=== PATIENT | female | born 1985 | race African-American/Black ===

== ENCOUNTER 2017-04-21 13:04 | Inpatient (IN) | payer MEDICAID ==
[~2017-04-21] VITALS: Ht 162.6 cm; Wt 102.6 kg
[2017-04-21] MEDS ORDERED: METOPROLOL TARTRATE 5 MG/5 ML VIAL. IV ONE ×2 (13:15→13:45)
[2017-04-21 13:35] LABS: BASO # 0.1 x10^3/uL (0.0-0.2); BASO % 1 % (0-3); EOS # 0.5 x10^3/uL (0.0-0.7); EOS % 5 % (0-3); HEMATOCRIT 39.5 % (36.0-47.0); LYMPH # 2.7 x10^3/uL (1.0-4.8); LYMPH % 28 % (24-48); MEAN CORPUSCULAR HEMOGLOBIN 24 pg (25-35); MEAN CORPUSCULAR HGB CONC 33 g/dL (31-37); MEAN CORPUSCULAR VOLUME 72 fL (79-100); MONO # 0.5 x10^3/uL (0.0-1.1); MONO % 5 % (0-9); NEUT # 5.8 x10^3uL (1.8-7.7); NEUT % 61 % (31-73); PLATELET COUNT 371 x10^3/uL (140-400); RED BLOOD COUNT 5.47 x10^6/uL (3.50-5.40); RED CELL DISTRIBUTION WIDTH 16.1 % (11.5-14.5); WHITE BLOOD COUNT 9.6 x10^3/uL (4.0-11.0)
[2017-04-21 13:43] LABS: CALCIUM 9.6 mg/dL (8.5-10.1); CREATININE 0.6 mg/dL (0.6-1.0); GFR 116.6; POTASSIUM 2.6 mmol/L (3.5-5.1)
[2017-04-21] MEDS ORDERED: POTASSIUM CHLORIDE 20 MEQ TABLET.ER. PO ONE ×3 (13:45→19:15)
--- NOTE | 2017-04-21 14:06 | PHYS DOC ---
Past History Past Medical History: No Pertinent History Past Surgical History: Hysterectomy, Oophorectomy, Tubal ligation, Other Alcohol Use: None Drug Use: None Adult General Chief Complaint Chief Complaint: HYPERTENSION HPI HPI Patient is a 31 year old F who presents with hypertension. She was at an employment physical today when she was found to be moderately hypertensive. She also has associated headache. She does have a history of hypertension during however she has no other history of high blood pressure. She does not take medications currently. She has no other associated symptoms. She has no other exacerbating or alleviating factors. Review of Systems Review of Systems Constitutional: Denies fever or chills [] Eyes: Denies change in visual acuity, redness, or eye pain [] HENT: Denies nasal congestion or sore throat [] Respiratory: Denies cough or shortness of breath [] Cardiovascular: No additional information not addressed in HPI [] GI: Denies abdominal pain, nausea, vomiting, bloody stools or diarrhea [] : Denies dysuria or hematuria [] Musculoskeletal: Denies back pain or joint pain [] Integument: Denies rash or skin lesions [] Neurologic: Denies focal weakness or sensory changes [] Endocrine: Denies polyuria or polydipsia [] All other systems were reviewed and found to be within normal limits, except as documented in this note. Family History Family History No pertinent medical history was reported Current Medications Current Medications Current Medications Medications (Trade) Dose Ordered Sig/Iva Start Time Stop Time Status Last Admin Dose Admin Metoprolol Tartrate (Lopressor Vial) 5 mg 1X ONCE 04/21/17 13:45 04/21/17 13:49 DC 04/21/17 13:53 5 MG Potassium Chloride (Klor-Con) 40 meq 1X ONCE 04/21/17 13:45 04/21/17 13:49 DC 04/21/17 13:54 40 MEQ Allergies Allergies Allergies Coded Allergies Type Severity Reaction Last Updated Verified No Known Drug Allergies 04/21/17 No Physical Exam Physical Exam Constitutional: Well developed, well nourished, no acute distress, non-toxic appearance. [] HENT: Normocephalic, atraumatic, Eyes: EOMI, conjunctiva normal, no discharge. [] Neck: Normal range of motion, no tenderness, supple, no stridor. [] Cardiovascular:Heart rate regular rhythm, Lungs & Thorax: Bilateral breath sounds clear to auscultation [] Abdomen: Bowel sounds normal, soft, no tenderness, no masses, no pulsatile masses. [] Skin: Warm, dry, no erythema, no rash. [] Extremities: No tenderness, no cyanosis, no clubbing, ROM intact, no edema. [] Neurologic: Alert and oriented X 3, normal motor function, normal sensory function, no focal deficits noted. [] Psychologic: Affect normal, judgement normal, mood normal. [] Current Patient Data Vital Signs Vital Signs Date Time Temp Pulse Resp B/P (MAP) Pulse Ox O2 Delivery O2 Flow Rate FiO2 04/21/17 13:53 84 197/136 04/21/17 13:41 16 96 Room Air 04/21/17 13:13 98.3 Lab Results Laboratory Tests Test 04/21/17 13:23 White Blood Count 9.6 x10^3/uL (4.0-11.0) Red Blood Count 5.47 x10^6/uL (3.50-5.40) H Hemoglobin 13.0 g/dL (12.0-15.5) Hematocrit 39.5 % (36.0-47.0) Mean Corpuscular Volume 72 fL (79-100) L Mean Corpuscular Hemoglobin 24 pg (25-35) L Mean Corpuscular Hemoglobin Concent 33 g/dL (31-37) Red Cell Distribution Width 16.1 % (11.5-14.5) H Platelet Count 371 x10^3/uL (140-400) Neutrophils (%) (Auto) 61 % (31-73) Lymphocytes (%) (Auto) 28 % (24-48) Monocytes (%) (Auto) 5 % (0-9) Eosinophils (%) (Auto) 5 % (0-3) H Basophils (%) (Auto) 1 % (0-3) Neutrophils # (Auto) 5.8 x10^3uL (1.8-7.7) Lymphocytes # (Auto) 2.7 x10^3/uL (1.0-4.8) Monocytes # (Auto) 0.5 x10^3/uL (0.0-1.1) Eosinophils # (Auto) 0.5 x10^3/uL (0.0-0.7) Basophils # (Auto) 0.1 x10^3/uL (0.0-0.2) Sodium Level 140 mmol/L (136-145) Potassium Level 2.6 mmol/L (3.5-5.1) *L Chloride Level 100 mmol/L (98-107) Carbon Dioxide Level 33 mmol/L (21-32) H Anion Gap 7 (6-14) Blood Urea Nitrogen 10 mg/dL (7-20) Creatinine 0.6 mg/dL (0.6-1.0) Estimated GFR (Cockcroft-Gault) 116.6 Glucose Level 106 mg/dL (70-99) H Calcium Level 9.6 mg/dL (8.5-10.1) EKG EKG NSR with flattened T waves Radiology/Procedures Radiology/Procedures [] Course & Med Decision Making Course & Med Decision Making Pertinent Labs and Imaging studies reviewed. (See chart for details) She was initially given metoprolol 5 IV. Her pressure was rechecked 15 minutes later without improvement. She is given a second dose of metoprolol 5 mg IV. She was also given potassium chloride 40 mEq by mouth and a normal saline bolus Dragon Disclaimer Dragon Disclaimer This electronic medical record was generated, in whole or in part, using a voice recognition dictation system. Departure Departure: Impression: Primary Impression: Hypertensive urgency Additional Impression: Hypokalemia Disposition: ADMITTED INPATIENT Condition: STABLE Problem Qualifiers ONESIMO LARSON MD Apr 21, 2017 14:06
[2017-04-21] MEDS ORDERED: IV NORMAL SALINE 1,000ML 1,000 ML IV ONE (14:15)
[2017-04-21 14:37] VITALS: BP 179/124
[2017-04-21 14:49] VITALS: BP 179/124
--- NOTE | 2017-04-21 14:58 | EKG ---
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
[2017-04-21] MEDS ORDERED: MULT1TAB52 PO (15:05)
[2017-04-21 15:37] VITALS: BP 180/125
[2017-04-21] MEDS: SPIRONOLACTONE 25 MG TABLET PO SCH (15:55)
[2017-04-21] MEDS: LABETALOL HCL 100 MG TABLET PO SCH ×2 (15:56→21:17)
[2017-04-21] MEDS ORDERED: ACETAMINOPHEN 650 MG/20.3 ML SOLUTION. PO PRN (17:45)
[2017-04-21] MEDS: ACETAMINOPHEN 325 MG TABLET PO PRN (17:47)
[2017-04-21 18:08] VITALS: BP 188/125
[2017-04-21] MEDS ORDERED: LABETALOL HCL 200 MG TABLET PO ONE (18:15)
--- NOTE | 2017-04-21 18:19 | HP ---
ADMIT DATE: 04/21/2017 HISTORY OF PRESENT ILLNESS: The patient is a 31-year-old female patient who came to the Emergency Room with a diagnosis of hypertension. 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 She also has been complaining of headache, has been taking Excedrin almost for the last few weeks. She apparently has had toxemia of in the fifth and the baby was born prematurely, and at that time, she was treated with antihypertensive medication including labetalol and Norvasc, and her blood pressure has resolved completely 2 months after delivery, according to her. Apparently, she had the history of syncope on 10/2015. 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 She was also found to be extremely hypokalemic, hypomagnesemic, and eventually, she ended up with a total abdominal hysterectomy and has been receiving iron, potassium and magnesium supplement intravenously at [facility]. PAST SURGICAL HISTORY: Significant for ectopic for which she underwent left salpingo-oophorectomy, tubal ligation, total abdominal hysterectomy and right salpingo-oophorectomy. OBSTETRIC HISTORY: She is 5, para 4. She has 1 ectopic . ALLERGIES: She has no known drug allergies. MEDICATIONS: She is on multivitamin 1 tablet once a day and Excedrin as needed for headache. FAMILY HISTORY: She has 1 younger brother and 1 younger sister and 1 older sister, all seemed to be healthy. Her father is alive at age of 51, has diabetes mellitus. Her mother is alive at age of 54 and is known to have hypertension. SOCIAL HISTORY: She is , has 2 sons and 2 daughters. She does not smoke, drink alcohol or recreational drugs. 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 REVIEW OF SYSTEMS: The patient denied any blurring of vision, cataract, glaucoma or macular degeneration. Denied any earache, tinnitus or sensorineural deafness. Denied any nosebleeds, stuffy nose or postnasal drip. Denied any sore throat, sore tongue, toothache, hoarseness of voice or difficulty swallowing. Denied any nausea, vomiting, diarrhea or constipation. Denied any hematemesis, melena or hematochezia. Denied any dysuria, frequency or hematuria. Denied any chest pain, shortness of breath, orthopnea, paroxysmal nocturnal dyspnea. Denied any cough, phlegm or hemoptysis. Denied any dizziness, lightheadedness, or vertigo, but did complain of headache. PHYSICAL EXAMINATION: GENERAL: On arrival to the Emergency Room, the patient was somewhat pale, but not jaundiced or cyanosis. No lymphadenopathy, no thyromegaly. No jugular venous distension. No lower limb edema. VITAL SIGNS: Her heart rate was 108, blood pressure on arrival 196/132, temperature was 98.3, respiratory rate was 18 and oxygen saturation was 97%. HEAD, EYES, EARS, NOSE AND THROAT: Showed normocephalic, atraumatic. NECK: Supple. HEART: Showed normal first and second heart sounds. No gallop, rub or murmur. CHEST: Clear to auscultation. No crepitation or rhonchi. ABDOMEN: Distended, soft, nontender. No guarding or rigidity. No organomegaly. All hernial orifices intact. Bowel sounds normal. NEUROLOGIC: She is awake, alert, responding appropriately. All cranial nerves intact. She moves extremities without difficulty. She ambulates without assistance or assistive devices. LABORATORY DATA: While in the Emergency Room, she had lab work done, which showed a white cell count of 9600, hemoglobin 13, hematocrit 39, MCV 72 and platelet count of 371,000. Her serum sodium was 140, potassium 2.6, chloride 100, bicarbonate 33, anion gap of 7, BUN 10, creatinine 0.6, estimated GFR was 116 mL per minute. Her glucose was 106, calcium was 9.6, and magnesium was 1.8. ASSESSMENT AND PLAN: We did order a renal Duplex ultrasound looking for renal artery stenosis. Given the extreme hypertension and hypokalemia, obviously hyperaldosteronism is a possibility as well as renal artery stenosis. I did start her on labetalol 100 mg 3 times a day as well as spironolactone and will replenish potassium. Obviously, if there is evidence of renal artery stenosis, we will consult the cardiology team to assist in the management. She might require renal angiography and perhaps angioplasty. She might require also further endocrinological evaluation regarding hyperaldosteronism or Conn syndrome. MARIANNE DE SOUZA MD DR: Jose Angel JOB#: [id number] / [id number]
[2017-04-21 19:03] LABS: CALCIUM 8.6 mg/dL (8.5-10.1); CREATININE 0.6 mg/dL (0.6-1.0); GFR 141.1
[2017-04-21 19:05] LABS: POTASSIUM 2.9 mmol/L (3.5-5.1)
[2017-04-21 19:41] VITALS: BP 178/110
[2017-04-21] MEDS: POTASSIUM CHLORIDE 20 MEQ TABLET.ER. PO SCH (21:18)
[2017-04-21 22:22] VITALS: BP 172/137
[2017-04-22] VITALS (10 sets, daily range): BP systolic 131–189; BP diastolic 80–124
[2017-04-22] MEDS: ACETAMINOPHEN 325 MG TABLET PO PRN ×3 (00:36→17:12)
[2017-04-22 07:20] LABS: ALBUMIN 3.2 g/dL (3.4-5.0); ALBUMIN/GLOBULIN RATIO 0.8 (1.0-1.7); CALCIUM 8.7 mg/dL (8.5-10.1); CREATININE 0.6 mg/dL (0.6-1.0); GFR 141.1; TOTAL BILIRUBIN 0.3 mg/dL (0.2-1.0); TOTAL PROTEIN 7.2 g/dL (6.4-8.2)
--- NOTE | 2017-04-22 08:27 | RAD ---
Ultrasound renal complete 04/21/2017 Clinical indication: Hypertensive urgency. Comparison: CT abdomen and pelvis 06/11/2009 Findings: Right kidney measures 13.9 cm in length without collecting system dilatation or abnormal perinephric fluid collection. The left kidney measures 12.3 cm in length without collecting system dilatation or abnormal perinephric fluid collection. The mildly distended urinary bladder is unremarkable. Impression: Both kidneys present without hydronephrosis.
[2017-04-22] MEDS: LABETALOL HCL 100 MG TABLET PO SCH ×3 (08:39→19:48)
[2017-04-22] MEDS: SPIRONOLACTONE 25 MG TABLET PO SCH (08:39)
[2017-04-22] MEDS: POTASSIUM CHLORIDE 20 MEQ TABLET.ER. PO SCH ×2 (08:40→19:48)
--- NOTE | 2017-04-22 10:43 | PDOC2 ---
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 She was sent to the ED where she was given IV antihypertensive medications without significant change in blood pressure so admitted for evaluation and management. She has complaints of headache and a history of migraines but daily over the last 2 months. She reports her last blood pressure measurement was about 6 months prior and was normal. She reports a 2 pillow orthopnea over about the last 2 months but denies any dyspnea on exertion. She reports some mild chest pressure that is improved with sitting up and worse in supine position. She denies any palpitations, lightheadedness or dizziness. She denies any recent illness, fever, chills, nausea, vomiting or diarrhea. She walks regularly up to a mile without symptoms or chest discomfort, dyspnea or fatigue. Her headache is currently resolved. She does report some increased stress associated with a recent move, starting a new job. Past Medical History PIH, eclampsia, anemia, hypokalemia and hypomagnesemia and syncope in the setting of dysfunctional uterine bleeding which led to a hysterectomy. Past Surgical History unilateral oophorectomy, tubal ligation and hysterectomy Family History hypertension, diabetes mellitus Social History non smoker, no significant ETOH, no illicit drugs, no significant caffeine intake Current Medications Current Medications Metoprolol Tartrate (Lopressor Vial) 5 mg 1X ONCE IV Last administered on 04/21at 13:30; Start 04/21/17 at 13:15; Stop 04/21/17 at 13:38; Status DC Metoprolol Tartrate (Lopressor Vial) 5 mg 1X ONCE IV Last administered on 04/21at 13:53; Start 04/21/17 at 13:45; Stop 04/21/17 at 13:49; Status DC Potassium Chloride (Klor-Con) 40 meq 1X ONCE PO Last administered on at 13:54; Start 04/21/17 at 13:45; Stop 04/21/17 at 13:49; Status DC Sodium Chloride 1,000 ml @ 1,000 mls/hr 1X ONCE IV Last administered on at 14:08; Start 04/21/17 at 14:15; Stop 04/21/17 at 15:14; Status DC Labetalol HCl (Trandate) 100 mg TID PO Last administered on 04/22/17at 08:39; Start 04/21/17 at 15:45 Spironolactone (Aldactone) 50 mg DAILY PO Last administered on 04/22/17at 08:39 ; Start 04/21/17 at 15:45 Potassium Chloride (Klor-Con) 40 meq 1X ONCE PO Last administered on at 15:55; Start 04/21/17 at 15:45; Stop 04/21/17 at 15:50; Status DC Potassium Chloride (Klor-Con) 20 meq TID PO Last administered on 04/22/17at 08: 40; Start 04/21/17 at 21:00 Acetaminophen (Tylenol) 650 mg PRN Q4HRS PRN PO PAIN / TEMP; Start 04/21/17 at 17:45; Stop 04/21/17 at 17:45; Status DC Acetaminophen (Tylenol) 650 mg PRN Q4HRS PRN PO PAIN / TEMP Last administered on 04/22/17at 08:40; Start 04/21/17 at 17:45 Labetalol HCl (Trandate) 200 mg 1X ONCE PO Last administered on 04/21/17at 18: 15; Start 04/21/17 at 18:15; Stop 04/21/17 at 18:16; Status DC Potassium Chloride (Klor-Con) 40 meq 1X ONCE PO Last administered on at 20:05; Start 04/21/17 at 19:15; Stop 04/21/17 at 19:16; Status DC Active Scripts Active Reported Multivitamins (Multivitamin) 1 Each Tablet 1 Tab PO DAILY Allergies: Coded Allergies: No Known Drug Allergies (Unverified , 04/21/17) Review of System as per HPI with addition of recent 20 lb weight gain and snoring General: Alert, Oriented X3, Cooperative, No acute distress HEENT: Atraumatic, EOMI, Mucous membr. moist/pink, Other (no carotid bruits) Lungs: Clear to auscultation Heart: Regular rate, Normal S1, Normal S2 Abdomen: Normal bowel sounds, Soft, No tenderness Extremities: No clubbing, No cyanosis, Normal pulses, Other (trace pedal edema) Neuro: Normal speech, Strength at 5/5 X4 ext Psych/Mental Status: Mental status NL, Mood NL VITALS Vital Signs Date Time Temp Pulse Resp B/P (MAP) Pulse Ox O2 Delivery O2 Flow Rate FiO2 04/22/17 08:39 79 163/94 04/22/17 05:34 98.1 18 97 Room Air Labs Laboratory Tests Test 04/21/17 13:23 04/21/17 18:30 04/22/17 06:32 White Blood Count 9.6 x10^3/uL (4.0-11.0) Red Blood Count 5.47 x10^6/uL (3.50-5.40) Hemoglobin 13.0 g/dL (12.0-15.5) Hematocrit 39.5 % (36.0-47.0) Mean Corpuscular Volume 72 fL (79-100) Mean Corpuscular Hemoglobin 24 pg (25-35) Mean Corpuscular Hemoglobin Concent 33 g/dL (31-37) Red Cell Distribution Width 16.1 % (11.5-14.5) Platelet Count 371 x10^3/uL (140-400) Neutrophils (%) (Auto) 61 % (31-73) Lymphocytes (%) (Auto) 28 % (24-48) Monocytes (%) (Auto) 5 % (0-9) Eosinophils (%) (Auto) 5 % (0-3) Basophils (%) (Auto) 1 % (0-3) Neutrophils # (Auto) 5.8 x10^3uL (1.8-7.7) Lymphocytes # (Auto) 2.7 x10^3/uL (1.0-4.8) Monocytes # (Auto) 0.5 x10^3/uL (0.0-1.1) Eosinophils # (Auto) 0.5 x10^3/uL (0.0-0.7) Basophils # (Auto) 0.1 x10^3/uL (0.0-0.2) Sodium Level 140 mmol/L (136-145) 140 mmol/L (136-145) 140 mmol/L (136-145) Potassium Level 2.6 mmol/L (3.5-5.1) 2.9 mmol/L (3.5-5.1) 3.0 mmol/L (3.5-5.1) Chloride Level 100 mmol/L (98-107) 103 mmol/L (98-107) 104 mmol/L (98-107) Carbon Dioxide Level 33 mmol/L (21-32) 28 mmol/L (21-32) 27 mmol/L (21-32) Anion Gap 7 (6-14) 9 (6-14) 9 (6-14) Blood Urea Nitrogen 10 mg/dL (7-20) 9 mg/dL (7-20) 7 mg/dL (7-20) Creatinine 0.6 mg/dL (0.6-1.0) 0.6 mg/dL (0.6-1.0) 0.6 mg/dL (0.6-1.0) Estimated GFR (Cockcroft-Gault) 116.6 141.1 141.1 Glucose Level 106 mg/dL (70-99) 148 mg/dL (70-99) 110 mg/dL (70-99) Calcium Level 9.6 mg/dL (8.5-10.1) 8.6 mg/dL (8.5-10.1) 8.7 mg/dL (8.5-10.1) Magnesium Level 1.8 mg/dL (1.8-2.4) BUN/Creatinine Ratio 12 (6-20) Total Bilirubin 0.3 mg/dL (0.2-1.0) Aspartate Amino Transf (AST/SGOT) 16 U/L (15-37) Alanine Aminotransferase (ALT/SGPT) 31 U/L (14-59) Alkaline Phosphatase 67 U/L (46-116) Total Protein 7.2 g/dL (6.4-8.2) Albumin 3.2 g/dL (3.4-5.0) Albumin/Globulin Ratio 0.8 (1.0-1.7) Images EKG, sinus rhythm, left ivory axis, non specific st/tabn. no acute ischemic changes Renal US - Impression: Both kidneys present without hydronephrosis. Assessment/Plan 1. accelerated hypertension - continue labetalol, add norvasc and prn hydralazine. Check renal arterial duplex, echo, TSH, ACTH and aldosterone. Consider 24 hour urine for VMA, metanephrines. 2. chest pain - no acute EKG changes, check troponin. 3. orthopnea - she does not appear overtly volume overloaded. await echo for LV function. Check CXR. 4. hypokalemia - replace, labs as above 5. chronic migraines - ? tension type, currently pain free. 6. obesity Problems: JACI ANTONIO MD 04/22/17 1419: CONSULT Allergies: Coded Allergies: No Known Drug Allergies (Unverified , 04/21/17) Assessment/Plan Patient seen and examined. Agree with ASSOCIATE EMBALMER/FUNERAL DIRECTOR's assessment and plan. Titrate oral antihypertensives for better blood pressure control. Check 2-D echo to assess LV systolic function. We will rule out secondary causes with renal arterial duplex scan and serum aldosterone levels Chest pain atypical and could be secondary to uncontrolled hypertension Myocardial infarction ruled out. Check for wall motion abnormalities on 2-D echo Thank you for your consultation Problems: HAYLEY STORM APRN Apr 22, 2017 10:43 JACI ANTONIO MD Apr 22, 2017 14:19
[2017-04-22] MEDS: amLODIPine BESYLATE 5 MG TABLET PO SCH (11:03)
[2017-04-22] MEDS: hydrALAZINE 20 MG/ML VIAL. IV PRN (11:05)
--- NOTE | 2017-04-22 11:56 | EKG ---
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
--- NOTE | 2017-04-22 12:30 | RAD ---
PA and lateral chest radiograph. History: Chest pain, hypertension. Comparison: None. Findings: Cardiomediastinal silhouette is within normal limits for size. Bilateral lung conti appear clear without evidence of infiltrate, effusion, or pneumothorax. Impression: 1. No acute cardiopulmonary process. Electronically signed by: Aries Walker MD (04/22/2017 12:27 PM) [place] [id number]
[2017-04-22] MEDS ORDERED: POTASSIUM CHLORIDE 20 MEQ TABLET.ER. PO ONE ×3 (15:15)
[2017-04-22] MEDS: HYDROcodone/APAP 5/325MG 1 TAB TABLET PO PRN (18:17)
[2017-04-22] MEDS: ONDANSETRON PF 4 MG/2 ML VIAL. IV PRN (19:47)
[2017-04-22] MEDS: ASA/APAP/CAFFEINE 250/250/65MG TABLET. PO PRN (19:48)
[2017-04-23 06:30] VITALS: BP 134/86
[2017-04-23 06:52] LABS: ALBUMIN 3.2 g/dL (3.4-5.0); ALBUMIN/GLOBULIN RATIO 0.8 (1.0-1.7); CALCIUM 8.9 mg/dL (8.5-10.1); CREATININE 0.6 mg/dL (0.6-1.0); GFR 141.1; POTASSIUM 3.6 mmol/L (3.5-5.1); TOTAL BILIRUBIN 0.3 mg/dL (0.2-1.0); TOTAL PROTEIN 7.3 g/dL (6.4-8.2)
[2017-04-23] MEDS: SPIRONOLACTONE 25 MG TABLET PO SCH (08:28)
[2017-04-23] MEDS: LABETALOL HCL 100 MG TABLET PO SCH ×3 (08:29→20:01)
[2017-04-23] MEDS: POTASSIUM CHLORIDE 20 MEQ TABLET.ER. PO SCH ×3 (08:29→20:00)
[2017-04-23] MEDS: amLODIPine BESYLATE 5 MG TABLET PO SCH (08:29)
--- NOTE | 2017-04-23 09:11 | PN ---
DATE: 04/22/2017 SUBJECTIVE: The patient is resting slightly propped up in bed, no apparent distress. Did complain of chest tightness and orthopnea. When she lies flat for the ultrasound, she also complained of chest pain, had an EKG which was unremarkable. Her blood pressure is trending down, although not yet optimally controlled. PHYSICAL EXAMINATION: GENERAL: When I saw her this afternoon, she looked pale, but no jaundice, cyanosis, or thyromegaly. No jugular venous distension. No limb edema. VITAL SIGNS: Her heart rate was 87, blood pressure 148/80, temperature was 97.8, respiratory rate 20, and oxygen saturation was 98% on room air. HEAD, EARS, NOSE, AND THROAT: Normocephalic, atraumatic. NECK: Supple. HEART: Showed normal first and second sounds. No gallop, rub, or murmur. CHEST: Clear to auscultation. No crepitation or rhonchi. ABDOMEN: Distended, soft, and nontender. No guarding or rigidity. No organomegaly. Hernial orifice intact. Bowel sounds normal. NEUROLOGIC: She is awake, alert, responding appropriately. All her cranial nerves intact. She moves extremities without difficulty. She ambulates without assistance or assistive devices. Her intake over the last 24 hours was 1040, no output was recorded. LABORATORY DATA: As of this morning showed a serum sodium 140, potassium 3, chloride 104, bicarbonate 27, anion gap of 9, BUN 7, creatinine 0.6, estimated GFR was 141 mL per minute. Her glucose was 110, calcium was 8.7. Total bilirubin, AST, ALT, alkaline phosphatase were normal. Total protein 7.2, albumin 3.2. Her triglycerides were 92, total cholesterol 167, LDL was 111, VLDL was 18, and HDL cholesterol was at 38, the ratio was 4, and TSH was 1.086. She apparently did have a renal ultrasound, which showed that the right kidney measures 13.9 cm in length without collecting system dilatation or abnormal perinephric fluid collection. The left kidney measures 12.3 cm in length without collecting system dilatation or abnormal perinephric fluid collection. The mildly distended urinary bladder is unremarkable. She has had also a chest x-ray that showed the cardiopulmonary silhouette is within normal limits for size. Bilateral lung conti appear clear without evidence of infiltrate, effusion, or pneumothorax. She has had renal artery Doppler as well as an echocardiogram, the result of which is still pending at the time of this dictation. ASSESSMENT: Accelerated hypertension with marked hypokalemia with potassium only of 2.6, raising the possibility of secondary hypertension, likely renal artery stenosis and/or hyperaldosteronism. PLAN: To increase the oral antihypertensive medication. She was seen in consultation by the Cardiology team and ordered ACTH and aldosterone tomorrow. Meanwhile, we will continue with the amlodipine as well as I will increase her potassium as well as spironolactone and decide on further management accordingly. MARIANNE DE SOUZA MD DR: MARY/lurdes JOB#: [id number] / [id number]
--- NOTE | 2017-04-23 09:53 | CARD ---
MR#: [id number] Date of Study: 04/22/2017 Ordering Physician: HAYLEY STORM, Referring Physician: MARIANNE DE SOUZA Tech: BRIANA Gallegos APPROVED REPORT EXAM: Two-dimensional and M-mode echocardiogram with Doppler and color Doppler. Other Information Quality : GoodHR: 93bpm INDICATION Dyspnea Congestive Heart Failure 2D DIMENSIONS Left Atrium(2D)3.5 (1.6-4.0cm)IVSd1.5 (0.7-1.1cm) Aortic Root(2D)3.0 (2.0-3.7cm)LVDd4.2 (3.9-5.9cm) LVOT Diameter2.2 (1.8-2.4cm)PWd1.6 (0.7-1.1cm) LVDs3.0 (2.5-4.0cm)FS (%) 28.0 % SV42.1 mlLVEF(%)54.6 (>50%) Aortic Valve AoV Peak Mars.196.5cm/sAoV VTI33.3cm AO Peak GR.15.5mmHgLVOT Peak Mars.118.2cm/s AO Mean GR.8mmHgAVA (VMAX)2.26cm2 Mitral Valve MV E Eqlucsnc42.6cm/sMV DECEL SFEP591kh MV A Fzweytfh030.1cm/sE/A Ratio0.8 Pulmonary Valve PV Peak Fymdniit309.9cm/sPV Peak Grad.8mmHg Pulmonary Vein S1 Izytnrxk29.7cm/sD2 Oueevkwd55.3cm/s LEFT VENTRICLE The left ventricle is normal size. There is borderline concentric left ventricular hypertrophy. The l eft ventricular systolic function is normal. The ejection fraction is 55-60%. There is normal LV segm ental wall motion. Transmitral Doppler flow pattern is Grade I-abnormal relaxation pattern. RIGHT VENTRICLE The right ventricle is normal size. The right ventricular systolic function is normal. ATRIA The left atrium size is normal. The right atrium size is normal. The interatrial septum is intact wit h no evidence for an atrial septal defect or patent foramen ovale as noted on 2-D or Doppler imaging. AORTIC VALVE The aortic valve is thickened but opens well. Doppler and Color Flow revealed no significant aortic r egurgitation. There is no significant aortic valvular stenosis. There is no aortic valvular vegetatio n. MITRAL VALVE The mitral valve is thickened but opens well. There is no evidence of mitral valve prolapse. There is no mitral valve stenosis. Doppler and Color Flow revealed no mitral valve regurgitation noted. TRICUSPID VALVE The tricuspid valve is not well visualized. Doppler and Color Flow revealed no tricuspid valve regurg itation noted. There is no tricuspid valve prolapse or vegetation. There is no tricuspid valve stenos is. PULMONIC VALVE The pulmonic valve is not well visualized. Doppler and Color Flow revealed trace pulmonic valvular re gurgitation. There is no pulmonic valvular stenosis. GREAT VESSELS The aortic root is normal in size. The IVC is normal in size and collapses >50% with inspiration. PERICARDIAL EFFUSION There is no pleural effusion. There is no evidence of significant pericardial effusion. Critical Notification Critical Value: No <Conclusion> The left ventricle is normal size. The left ventricular systolic function is normal. The ejection fraction is 55-60%. There is borderline concentric left ventricular hypertrophy. There is no significant aortic valvular stenosis. Doppler and Color Flow revealed no significant aortic regurgitation. Doppler and Color Flow revealed no mitral valve regurgitation noted. Doppler and Color Flow revealed no tricuspid valve regurgitation noted. There is no evidence of significant pericardial effusion. Signed by : Audie Kyle MD Electronically Approved : 04/23/2017 09:53:28
--- NOTE | 2017-04-23 11:36 | PDOC ---
SUBJECTIVE: Patient seen and examined She feels well today OBJECTIVE: Problems: Problems Medical Problems: (1) Hypertensive urgency Status: Acute (2) Hypokalemia Status: Acute Vital Signs: Vital Signs Date Time Temp Pulse Resp B/P (MAP) Pulse Ox O2 Delivery O2 Flow Rate FiO2 04/23/17 08:29 61 134/86 04/23/17 08:15 Room Air 04/23/17 06:30 97.8 20 97 04/22/17 23:53 2.0 I & O Intake and Output 04/23/17 07:00 Intake Total 1860 ml Balance 1860 ml Intake Oral 1860 ml # Voids 5 Labs: Laboratory Tests Test 04/21/17 13:23 04/21/17 18:30 04/22/17 06:32 04/22/17 12:10 White Blood Count 9.6 x10^3/uL (4.0-11.0) Red Blood Count 5.47 x10^6/uL (3.50-5.40) Hemoglobin 13.0 g/dL (12.0-15.5) Hematocrit 39.5 % (36.0-47.0) Mean Corpuscular Volume 72 fL (79-100) Mean Corpuscular Hemoglobin 24 pg (25-35) Mean Corpuscular Hemoglobin Concent 33 g/dL (31-37) Red Cell Distribution Width 16.1 % (11.5-14.5) Platelet Count 371 x10^3/uL (140-400) Neutrophils (%) (Auto) 61 % (31-73) Lymphocytes (%) (Auto) 28 % (24-48) Monocytes (%) (Auto) 5 % (0-9) Eosinophils (%) (Auto) 5 % (0-3) Basophils (%) (Auto) 1 % (0-3) Neutrophils # (Auto) 5.8 x10^3uL (1.8-7.7) Lymphocytes # (Auto) 2.7 x10^3/uL (1.0-4.8) Monocytes # (Auto) 0.5 x10^3/uL (0.0-1.1) Eosinophils # (Auto) 0.5 x10^3/uL (0.0-0.7) Basophils # (Auto) 0.1 x10^3/uL (0.0-0.2) Sodium Level 140 mmol/L (136-145) 140 mmol/L (136-145) 140 mmol/L (136-145) Potassium Level 2.6 mmol/L (3.5-5.1) 2.9 mmol/L (3.5-5.1) 3.0 mmol/L (3.5-5.1) Chloride Level 100 mmol/L (98-107) 103 mmol/L (98-107) 104 mmol/L (98-107) Carbon Dioxide Level 33 mmol/L (21-32) 28 mmol/L (21-32) 27 mmol/L (21-32) Anion Gap 7 (6-14) 9 (6-14) 9 (6-14) Blood Urea Nitrogen 10 mg/dL (7-20) 9 mg/dL (7-20) 7 mg/dL (7-20) Creatinine 0.6 mg/dL (0.6-1.0) 0.6 mg/dL (0.6-1.0) 0.6 mg/dL (0.6-1.0) Estimated GFR (Cockcroft-Gault) 116.6 141.1 141.1 Glucose Level 106 mg/dL (70-99) 148 mg/dL (70-99) 110 mg/dL (70-99) Calcium Level 9.6 mg/dL (8.5-10.1) 8.6 mg/dL (8.5-10.1) 8.7 mg/dL (8.5-10.1) Magnesium Level 1.8 mg/dL (1.8-2.4) BUN/Creatinine Ratio 12 (6-20) Total Bilirubin 0.3 mg/dL (0.2-1.0) Aspartate Amino Transf (AST/SGOT) 16 U/L (15-37) Alanine Aminotransferase (ALT/SGPT) 31 U/L (14-59) Alkaline Phosphatase 67 U/L (46-116) Troponin I Quantitative < 0.017 ng/mL (0-0.055) Total Protein 7.2 g/dL (6.4-8.2) Albumin 3.2 g/dL (3.4-5.0) Albumin/Globulin Ratio 0.8 (1.0-1.7) Triglycerides Level 92 mg/dL (0-150) Cholesterol Level 167 mg/dL (0-200) LDL Cholesterol, Calculated 111 mg/dL (0-100) VLDL Cholesterol, Calculated 18 mg/dL (0-40) Non-HDL Cholesterol Calculated 129 mg/dL (0-129) HDL Cholesterol 38 mg/dL (40-60) Cholesterol/HDL Ratio 4.0 Thyroid Stimulating Hormone (TSH) 1.086 uIU/mL (0.358-3.740) D-Dimer (Brea) 0.43 mg/L (0.00-0.50) Test 04/23/17 06:10 Sodium Level 139 mmol/L (136-145) Potassium Level 3.6 mmol/L (3.5-5.1) Chloride Level 105 mmol/L (98-107) Carbon Dioxide Level 27 mmol/L (21-32) Anion Gap 7 (6-14) Blood Urea Nitrogen 8 mg/dL (7-20) Creatinine 0.6 mg/dL (0.6-1.0) Estimated GFR (Cockcroft-Gault) 141.1 BUN/Creatinine Ratio 13 (6-20) Glucose Level 97 mg/dL (70-99) Calcium Level 8.9 mg/dL (8.5-10.1) Total Bilirubin 0.3 mg/dL (0.2-1.0) Aspartate Amino Transf (AST/SGOT) 18 U/L (15-37) Alanine Aminotransferase (ALT/SGPT) 30 U/L (14-59) Alkaline Phosphatase 67 U/L (46-116) Total Protein 7.3 g/dL (6.4-8.2) Albumin 3.2 g/dL (3.4-5.0) Albumin/Globulin Ratio 0.8 (1.0-1.7) Physical Exam: Chest: clear CV: RRR Abdomen: soft ASSESSMENT: 1. accelerated hypertension - Improved BP on present medications. ECHO with normal LV function and borderline LVH. 2. chest pain - resolved, no acute EKG changes, troponin not significantly elevated. 3. orthopnea - ECHO as above. 4. hypokalemia - replaced 5. chronic migraines - resolved with better BP control. CORRINA HUBER MD Apr 23, 2017 11:35
[2017-04-23 11:38] VITALS: BP 163/107
[2017-04-23] MEDS: hydrALAZINE 20 MG/ML VIAL. IV PRN ×2 (11:43→22:30)
[2017-04-23] MEDS: ONDANSETRON PF 4 MG/2 ML VIAL. IV PRN (12:53)
[2017-04-23] MEDS: ASA/APAP/CAFFEINE 250/250/65MG TABLET. PO PRN ×2 (13:07→20:00)
[2017-04-23] MEDS: HYDROcodone/APAP 5/325MG 1 TAB TABLET PO PRN ×2 (15:26→20:01)
[2017-04-23] MEDS ORDERED: amLODIPine BESYLATE 5 MG TABLET PO ONE (15:45)
[2017-04-23 15:54] VITALS: BP 161/103
[2017-04-23] MEDS: POLYETHYLENE GLYCOL 3350 17 GM PACKET. PO PRN (17:09)
[2017-04-23 19:00] VITALS: BP 173/79
[2017-04-23] MEDS: DOCUSATE SODIUM 100 MG CAPSULE PO SCH (19:59)
[2017-04-23 22:30] VITALS: BP 166/104
[2017-04-23 23:00] VITALS: BP 145/85
[2017-04-23] MEDS: ACETAMINOPHEN 325 MG TABLET PO PRN (23:20)
[2017-04-24 06:06] VITALS: BP 128/89
[2017-04-24 07:51] LABS: CREATININE 0.5 mg/dL (0.6-1.0); GFR 174.1; MAGNESIUM 1.8 mg/dL (1.8-2.4); POTASSIUM 3.7 mmol/L (3.5-5.1)
--- NOTE | 2017-04-24 08:03 | PN ---
DATE: 04/23/2017 SUBJECTIVE: The patient is resting slightly propped up in bed, in no apparent distress. She is awake, alert, has a good day this morning but unfortunately her blood pressure went up again this afternoon. She complained of headache. She also complained of constipation. OBJECTIVE: GENERAL: When I saw her this afternoon, she looked well and was clearly in no apparent respiratory distress. On examining her, she looked pale, but no jaundice, cyanosis, or thyromegaly. No jugular venous distension. No limb edema. VITAL SIGNS: Her heart rate was 84, blood pressure was 161/101. Her temperature was 98.4, respiratory rate 20, and oxygen saturation was 97%. HEAD, EARS, NOSE AND THROAT: Normocephalic, atraumatic. NECK: Supple. HEART: Showed normal first and second heart sounds with no gallop, rub or murmur. CHEST: Clear to auscultation. No crepitation or rhonchi. ABDOMEN: Distended, soft, nontender. No guarding or rigidity. No organomegaly. Hernial orifice intact. Bowel sounds normal. NEUROLOGIC: She was awake, alert, responding appropriately. Cranial nerves intact. She moves extremities without difficulty. She ambulates without assistance or assistive devices. Her intake over the last 24 hours was 1160. No output was recorded. LABORATORY DATA: Her lab work this morning showed that her serum sodium was 139, potassium 3.6, chloride 105, bicarbonate 27, anion gap of 7, BUN 8, creatinine was 0.6, estimated GFR was 141 mL per minute. Her glucose was 97, calcium was 8.9. Total bilirubin, AST, ALT, alkaline phosphatase were normal. Total protein was 7.3, albumin 3.2. ASSESSMENT: Accelerated hypertension. The blood pressure is much improved, but not optimally controlled yet. Apparently, she has had an echocardiogram done, which showed that her left ventricular size is normal with normal left ventricular systolic function and an ejection fraction of 55-60%. She has borderline concentric left ventricular hypertrophy and no significant valvular regurgitation or stenosis. PLAN: My plan is to increase her amlodipine to 10 mg and evaluate her, repeat her labs tomorrow, and if she remains stable, can discharge her to follow up with her primary care. MARIANNE DE SOUZA MD DR: MARY/lurdes JOB#: [id number] / [id number]
[2017-04-24] MEDS: SPIRONOLACTONE 25 MG TABLET PO SCH (08:58)
[2017-04-24] MEDS: DOCUSATE SODIUM 100 MG CAPSULE PO SCH ×2 (08:58→19:29)
[2017-04-24] MEDS: POTASSIUM CHLORIDE 20 MEQ TABLET.ER. PO SCH ×3 (08:58→19:29)
[2017-04-24] MEDS: POLYETHYLENE GLYCOL 3350 17 GM PACKET. PO PRN (08:58)
[2017-04-24] MEDS: LABETALOL HCL 100 MG TABLET PO SCH ×3 (08:59→19:29)
[2017-04-24] MEDS ORDERED: amLODIPine BESYLATE 10 MG TABLET PO SCH (09:00)
[2017-04-24 11:27] VITALS: BP 152/83
[2017-04-24 15:27] VITALS: BP 159/108
[2017-04-24] MEDS: ASA/APAP/CAFFEINE 250/250/65MG TABLET. PO PRN (19:28)
[2017-04-24 19:30] VITALS: BP 137/60
[2017-04-24 23:05] VITALS: BP 135/85
--- NOTE | 2017-04-25 00:41 | PN ---
DATE: 04/24/2017 SUBJECTIVE: The patient is a 31-year-old female patient who was admitted with accelerated hypertension that is somewhat better controlled, although not optimally so yet. She is on labetalol, amlodipine, spironolactone and potassium supplement and her blood pressure continued to be in the 150/80-100. She denied any headache today. OBJECTIVE: GENERAL: When I examined her, she looked well and was clearly in no apparent respiratory distress, pale, but no jaundice, cyanosis or thyromegaly. No jugular venous distention. No edema. VITAL SIGNS: Her heart rate was 93, blood pressure 152/83, temperature was 97.9, respiratory rate 20, and oxygen saturation was 96%. The rest of clinical examination is unremarkable, has not really changed. LABORATORY DATA: As of this morning showed that her serum sodium 138, potassium 3.7, chloride 103, bicarbonate 27, anion gap of 8, BUN 10, creatinine 0.5, estimated GFR was 174 mL per minute. Her glucose was 95, calcium was 9, and magnesium was 1.8. Her ACTH baseline was 59. Her TSH was 1.089. ASSESSMENT: Accelerated hypertension. Her blood pressure is much better improved, but not yet controlled. The patient has an echocardiogram, which showed that her left ventricular size is normal with normal left ventricular systolic function, ejection fraction of 55%-60%. She has mild borderline concentric left ventricular hypertrophy, but no significant valvular regurgitation or stenosis. PLAN: My plan is to discontinue amlodipine. Start her on Procardia 30 mg with the aim to increase it up to 120 mg if deemed necessary. MARIANNE DE SOUZA MD DR: MARY/lurdes JOB#: [id number] / [id number]
[2017-04-25 05:36] VITALS: BP 121/75
[2017-04-25 07:02] LABS: CALCIUM 8.9 mg/dL (8.5-10.1); CREATININE 0.4 mg/dL (0.6-1.0); GFR 225.3; POTASSIUM 3.4 mmol/L (3.5-5.1)
[2017-04-25 07:11] LABS: HEMATOCRIT 36.8 % (36.0-47.0); HEMOGLOBIN 11.9 g/dL (12.0-15.5); RED CELL DISTRIBUTION WIDTH 16.6 % (11.5-14.5); WHITE BLOOD COUNT 9.4 x10^3/uL (4.0-11.0)
[2017-04-25] MEDS: DOCUSATE SODIUM 100 MG CAPSULE PO SCH (08:40)
[2017-04-25] MEDS: LABETALOL HCL 100 MG TABLET PO SCH ×2 (08:40→14:05)
[2017-04-25] MEDS: POTASSIUM CHLORIDE 20 MEQ TABLET.ER. PO SCH ×2 (08:40→14:06)
[2017-04-25] MEDS: POLYETHYLENE GLYCOL 3350 17 GM PACKET. PO PRN (08:41)
--- NOTE | 2017-04-25 08:53 | PDOC ---
HAYLEY STORM OFFICE ADMIN 04/25/17 0853: PROGRESS NOTES Diagnosis Problem Problems Medical Problems: (1) Hypertensive urgency Status: Acute (2) Hypokalemia Status: Acute Assessment Problems Medical Problems: (1) Hypertensive urgency Status: Acute (2) Hypokalemia Status: Acute 1. accelerated hypertension - improved with change to nifedipine. normal LV function, borderline LVH by echo. Renal duplex pending. Problems: Subjective feeling better, no headache, no chest pain or palpitations. would like to go home. Objective Vital Signs Date Time Temp Pulse Resp B/P (MAP) Pulse Ox O2 Delivery O2 Flow Rate FiO2 04/25/17 08:41 90 121/75 04/25/17 08:00 Room Air 04/25/17 05:36 97.9 20 98 04/22/17 23:53 2.0 Intake and Output 04/25/17 07:00 Intake Total 540 ml Balance 540 ml Intake Oral 540 ml # Voids 2 Abdomen: Normal bowel sounds, Soft, No tenderness Heart: Regular rate, Normal S1, Normal S2 Extremities: No cyanosis, No edema, Normal pulses General: Alert, Oriented X3, Cooperative Lungs: Clear to auscultation, Normal air movement Neuro: Normal speech, Strength at 5/5 X4 ext Psych/Mental Status: Mental status NL, Mood NL Review of Relevant I have reviewed the following items tess (where applicable) has been applied. Labs Laboratory Tests Test 04/24/17 07:08 04/25/17 06:15 Sodium Level 138 mmol/L (136-145) 121 mmol/L (136-145) Potassium Level 3.7 mmol/L (3.5-5.1) 3.4 mmol/L (3.5-5.1) Chloride Level 103 mmol/L (98-107) 94 mmol/L (98-107) Carbon Dioxide Level 27 mmol/L (21-32) 24 mmol/L (21-32) Anion Gap 8 (6-14) 3 (6-14) Blood Urea Nitrogen 10 mg/dL (7-20) 8 mg/dL (7-20) Creatinine 0.5 mg/dL (0.6-1.0) 0.4 mg/dL (0.6-1.0) Estimated GFR (Cockcroft-Gault) 174.1 225.3 Glucose Level 95 mg/dL (70-99) 98 mg/dL (70-99) Calcium Level 9.0 mg/dL (8.5-10.1) 8.9 mg/dL (8.5-10.1) Magnesium Level 1.8 mg/dL (1.8-2.4) White Blood Count 9.4 x10^3/uL (4.0-11.0) Red Blood Count 5.00 x10^6/uL (3.50-5.40) Hemoglobin 11.9 g/dL (12.0-15.5) Hematocrit 36.8 % (36.0-47.0) Mean Corpuscular Volume 74 fL (79-100) Mean Corpuscular Hemoglobin 24 pg (25-35) Mean Corpuscular Hemoglobin Concent 32 g/dL (31-37) Red Cell Distribution Width 16.6 % (11.5-14.5) Platelet Count 329 x10^3/uL (140-400) Medications Current Medications Metoprolol Tartrate (Lopressor Vial) 5 mg 1X ONCE IV Last administered on 04/21at 13:30; Start 04/21/17 at 13:15; Stop 04/21/17 at 13:38; Status DC Metoprolol Tartrate (Lopressor Vial) 5 mg 1X ONCE IV Last administered on 04/21at 13:53; Start 04/21/17 at 13:45; Stop 04/21/17 at 13:49; Status DC Potassium Chloride (Klor-Con) 40 meq 1X ONCE PO Last administered on at 13:54; Start 04/21/17 at 13:45; Stop 04/21/17 at 13:49; Status DC Sodium Chloride 1,000 ml @ 1,000 mls/hr 1X ONCE IV Last administered on at 14:08; Start 04/21/17 at 14:15; Stop 04/21/17 at 15:14; Status DC Labetalol HCl (Trandate) 100 mg TID PO Last administered on 04/25/17at 08:40; Start 04/21/17 at 15:45 Spironolactone (Aldactone) 50 mg DAILY PO Last administered on 04/24/17at 08:58 ; Start 04/21/17 at 15:45; Stop 04/25/17 at 08:09; Status DC Potassium Chloride (Klor-Con) 40 meq 1X ONCE PO Last administered on at 15:55; Start 04/21/17 at 15:45; Stop 04/21/17 at 15:50; Status DC Potassium Chloride (Klor-Con) 20 meq TID PO Last administered on 04/22/17at 08: 40; Start 04/21/17 at 21:00; Stop 04/22/17 at 14:36; Status DC Acetaminophen (Tylenol) 650 mg PRN Q4HRS PRN PO PAIN / TEMP; Start 04/21/17 at 17:45; Stop 04/21/17 at 17:45; Status DC Acetaminophen (Tylenol) 650 mg PRN Q4HRS PRN PO PAIN / TEMP Last administered on 04/23/17at 23:20; Start 04/21/17 at 17:45 Labetalol HCl (Trandate) 200 mg 1X ONCE PO Last administered on 04/21/17at 18: 15; Start 04/21/17 at 18:15; Stop 04/21/17 at 18:16; Status DC Potassium Chloride (Klor-Con) 40 meq 1X ONCE PO Last administered on at 20:05; Start 04/21/17 at 19:15; Stop 04/21/17 at 19:16; Status DC Hydralazine HCl (Apresoline) 10 mg PRN Q4HRS PRN IV ELEVATED BP, SEE COMMENTS Last administered on 04/23/17at 22:30; Start 04/22/17 at 10:45 Amlodipine Besylate (Norvasc) 5 mg DAILY PO Last administered on 04/23/17at 08: 29; Start 04/22/17 at 11:00; Stop 04/23/17 at 15:43; Status DC Potassium Chloride (Klor-Con) 40 meq TID PO Last administered on 04/25/17at 08: 40; Start 04/22/17 at 21:00 Potassium Chloride (Klor-Con) 40 meq 1X ONCE PO ; Start 04/22/17 at 15:15; Stop 04/22/17 at 15:15; Status DC Potassium Chloride (Klor-Con) 20 meq 1X ONCE PO ; Start 04/22/17 at 15:15; Stop 04/22/17 at 15:15; Status DC Potassium Chloride (Klor-Con) 40 meq 1X ONCE PO Last administered on at 15:12; Start 04/22/17 at 15:15; Stop 04/22/17 at 15:16; Status DC Acetaminophen/ Hydrocodone Bitart (Lortab 5/325) 1 tab PRN Q4HRS PRN PO PAIN Last administered on 04/23/17at 20:01; Start 04/22/17 at 18:00 Ondansetron HCl (Zofran) 4 mg PRN Q6HRS PRN IV NAUSEA/VOMITING Last administered on 04/23/17at 12:53; Start 04/22/17 at 19:45 Acetaminophen/ Aspirin/Caffeine (Excedrin Migraine) 1 tab PRN Q6HRS PRN PO MIGRAINE HEADACHE Last administered on 04/24/17at 19:28; Start 04/22/17 at 19:45 Amlodipine Besylate (Norvasc) 5 mg 1X ONCE PO Last administered on 04/23/17at 15:46; Start 04/23/17 at 15:45; Stop 04/23/17 at 15:57; Status DC Amlodipine Besylate (Norvasc) 10 mg DAILY PO Last administered on 04/24/17at 08: 59; Start 04/24/17 at 09:00; Stop 04/24/17 at 15:39; Status DC Docusate Sodium (Colace) 100 mg BID PO Last administered on 04/25/17at 08:40; Start 04/23/17 at 21:00 Polyethylene Glycol (miraLAX) 17 gm PRN DAILY PRN PO CONSTIPATION Last administered on 04/25/17at 08:41; Start 04/23/17 at 15:45 Nifedipine (Procardia Xl) 30 mg DAILY PO Last administered on 04/25/17at 08:41; Start 04/25/17 at 09:00 Nifedipine (Procardia Xl) 30 mg 1X ONCE PO Last administered on 04/24/17at 17: 02; Start 04/24/17 at 16:00; Stop 04/24/17 at 16:01; Status DC Active Scripts Active Reported Multivitamins (Multivitamin) 1 Each Tablet 1 Tab PO DAILY Vitals/I & O Vital Sign - Last 24 Hours 04/24/17 04/24/17 04/24/17 04/24/17 08:59 08:59 11:27 14:08 Temp 97.9 Pulse 102 102 93 93 Resp 20 B/P (MAP) 128/89 128/89 152/83 (106) 152/83 Pulse Ox 96 O2 Delivery Room Air 04/24/17 04/24/17 04/24/17 04/24/17 15:27 17:02 19:29 19:30 Temp 98.1 98.4 Pulse 89 89 89 64 Resp 20 20 B/P (MAP) 159/108 (125) 159/108 159/108 137/60 (85) Pulse Ox 94 93 O2 Delivery Room Air Room Air 04/24/17 04/24/17 04/25/17 04/25/17 20:00 23:05 05:36 08:00 Temp 97.5 97.9 Pulse 80 90 Resp 16 20 B/P (MAP) 135/85 (102) 121/75 (90) Pulse Ox 98 98 O2 Delivery Room Air Room Air Room Air Room Air 04/25/17 04/25/17 08:40 08:41 Pulse 90 90 B/P (MAP) 121/75 121/75 Intake and Output 04/24/17 04/24/17 04/25/17 15:00 23:00 07:00 Intake Total 240 ml 300 ml Balance 240 ml 300 ml JACI ANTONIO MD 04/25/17 1416: PROGRESS NOTES Assessment Patient seen and examined. Agree with PHARMACY TECHNICIAN's assessment and plan Blood pressure much better controlled 2-D echo showed normal LV function Renal arterial duplex scan did not show any significant renal artery stenosis Continue current medical regimen Okay for discharge from cardiac standpoint Follow-up in 2-4 weeks Problems: HAYLEY STORM APRN Apr 25, 2017 08:53 JACI ANTONIO MD Apr 25, 2017 14:16
[2017-04-25 11:52] VITALS: BP 145/100
--- NOTE | 2017-04-25 13:15 | RAD ---
MR#: [id number] Date of Study: 04/22/2017 Ordering Physician: HAYLEY STORM, Referring Physician: MARIANNE DE SOUZA, Tech: Carolina Harp, CHARANJIT, RVT, RTR APPROVED REPORT Patient Location: IN-PATIENT Indications Grayscale images of the bilateral kidneys were limited but no obvious abnormalities are noted. Veloci ties in the proximal middle and distal right and left renal arteries are grossly normal. Spectral wav eforms are unremarkable. Renal to aortic ratios are grossly normal. No evidence of high-grade stenosi s. Critical Notification Critical Value: No <Conclusion> No evidence of high-grade renal artery stenosis. Signed by : Tushar Brown, Electronically Approved : 04/25/2017 13:15:19
[2017-04-25 15:48] VITALS: BP 195/102
[2017-04-25] MEDS: ONDANSETRON PF 4 MG/2 ML VIAL. IV PRN (16:16)
[2017-04-25 16:19] VITALS: BP 162/94
[2017-04-25] MEDS: hydrALAZINE 20 MG/ML VIAL. IV PRN (16:19)
--- NOTE | 2017-04-25 22:28 | PN ---
DATE: CURRENT PROBLEMS: 1. Accelerated hypertension. 2. Hyponatremia, this is new. 3. Mild hypokalemia. 4. Hypochromic microcytic anemia. Interviewed. The patient has longstanding iron deficiency, which has required iron infusions in the past. Her iron studies are pending. She has had a hysterectomy about a year ago because of the very heavy periods. She was started on spironolactone, but her sodium was 121 today, was fine before that. She does not have any symptoms regarding her sodium, but we will need to be watched over overnight. Renal duplex scanning was normal. Cardiology assisting. OBJECTIVE: VITAL SIGNS: Blood pressure 145/100, pulse 94, respirations 20, pulse ox 95% on room air. GENERAL: Alert. HEENT: Tongue moist. NECK: Supple. LUNGS: Clear. CARDIOVASCULAR: Regular rhythm and rate. ABDOMEN: Soft, nontender. EXTREMITIES: Without edema. MENTAL STATUS: The patient is alert and oriented. PLAN: Check serum osmolality, serum sodium, discontinue Aldactone, increase Procardia to 30 b.i.d., and hopefully be able to send her home tomorrow. JACOBO RAMIREZ DO DR: JOSE/lurdes JOB#: [id number] / [id number]
== END 2017-04-25 17:10 | disposition left against medical advice (07) | DRG 305 ==
LOC: ER 13:04 → 1 SOUTH 14:36 → OBSVTOIN 16:42
PROVIDERS: ADMIT Internal Medicine; ATTEND Internal Medicine
DX: I16.0 Hypertensive urgency (principal); I11.9 Hypertensive heart disease without heart failure; E83.42 Hypomagnesemia; E87.1 Hypo-osmolality and hyponatremia; E66.9 Obesity, unspecified; Z68.38 Body mass index [BMI] 38.0-38.9, adult; E87.6 Hypokalemia; G43.909 Migraine, unspecified, not intractable, without status migrainosus; E26.9 Hyperaldosteronism, unspecified; R06.01 Orthopnea; D50.9 Iron deficiency anemia, unspecified; K59.00 Constipation, unspecified; Z82.49 Family history of ischemic heart disease and other diseases of the circulatory system; Z83.3 Family history of diabetes mellitus; Z90.710 Acquired absence of both cervix and uterus; Z90.721 Acquired absence of ovaries, unilateral; Z98.51 Tubal ligation status
CPT/HCPCS: 36415; 71046; 76770; 80048; 80053; 80061; 82024; 82088; 82728; 83540; 83550; 83735; 83930; 84300; 84443; 84484; 85025; 85027; 85379; 93005; 93306; 93975; 96374; G0378; G0379; J0360; J2405; J3490; 99285-25; J7030

== ENCOUNTER 2019-04-17 12:43 | Emergency (ER) | payer SELFPAY ==
[~2019-04-17] VITALS: Ht 162.6 cm; Wt 85.9 kg
[~2019-04-17 12:43] MED LIST: MULT1TAB52 PO
[2019-04-17 12:46] VITALS: BP 140/86
[2019-04-17 13:26] LABS: INFLUENZA A PATIENT NEGATIVE (NEGATIVE); INFLUENZA B PATIENT NEGATIVE (NEGATIVE)
--- NOTE | 2019-04-17 13:33 | PHYS DOC ---
Past History Past Medical History: No Pertinent History Past Surgical History: Hysterectomy, Oophorectomy, Tubal ligation, Other Alcohol Use: None Drug Use: None Adult General Chief Complaint Chief Complaint: FLU SYMPTOM HPI HPI 33-year-old female presents with 3 day history of cough, fever, body aches, and fatigue. 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 She is concerned about influenza. Her fever has been as high as 102. She denies nausea, vomiting, diarrhea. She has no other complaints this time. Review of Systems Review of Systems Constitutional: Fever, body aches, fatigue[] Eyes: Denies change in visual acuity, redness, or eye pain [] HENT: Denies nasal congestion or sore throat [] Respiratory: Cough without shortness of breath [] Cardiovascular: No additional information not addressed in HPI [] GI: Denies abdominal pain, nausea, vomiting, bloody stools or diarrhea [] : Denies dysuria or hematuria [] Musculoskeletal: Denies back pain or joint pain [] Integument: Denies rash or skin lesions [] Neurologic: Denies headache, focal weakness or sensory changes [] Endocrine: Denies polyuria or polydipsia [] All other systems were reviewed and found to be within normal limits, except as documented in this note. Allergies Allergies Allergies Coded Allergies Type Severity Reaction Last Updated Verified No Known Drug Allergies 04/21/17 No Physical Exam Physical Exam Constitutional: Well developed, well nourished, no acute distress, non-toxic but ill appearance. [] HENT: Normocephalic, atraumatic, bilateral external ears normal, oropharynx moist, no oral exudates, nose normal. [] Eyes: PERRLA, EOMI, conjunctiva normal, no discharge. [] Neck: Normal range of motion, no tenderness, supple, no stridor. [] Cardiovascular: Heart rate regular rhythm, no murmur [] Lungs & Thorax: Bilateral breath sounds clear to auscultation [] Abdomen: Bowel sounds normal, soft, no tenderness, no masses, no pulsatile masses. [] Skin: Warm, dry, no erythema, no rash. [] Back: No tenderness, no CVA tenderness. [] Extremities: No tenderness, no cyanosis, no clubbing, ROM intact, no edema. [] Neurologic: Alert and oriented X 3, normal motor function, normal sensory function, no focal deficits noted. [] Psychologic: Affect normal, judgement normal, mood normal. [] Current Patient Data Vital Signs Vital Signs Date Time Temp Pulse Resp B/P (MAP) Pulse Ox O2 Delivery O2 Flow Rate FiO2 04/17/19 12:46 98.6 102 16 140/86 (104) 93 Room Air Lab Results Laboratory Tests Test 04/17/19 12:50 Influenza Type A (Rapid) Negative (NEGATIVE) Influenza Type B (Rapid) Negative (NEGATIVE) EKG EKG [] Radiology/Procedures Radiology/Procedures [] Course & Med Decision Making Course & Med Decision Making Pertinent Labs and Imaging studies reviewed. (See chart for details) Patient's influenza is negative however I will treat her for influenza with Tamiflu as I think this is still likely her diagnosis. She is stable for discharge at this time. [] Dragon Disclaimer Dragon Disclaimer This electronic medical record was generated, in whole or in part, using a voice recognition dictation system. Departure Departure: Impression: Primary Impression: Influenza Disposition: HOME, SELF-CARE Condition: STABLE Referrals: PCPJOSÉ MIGUEL (PCP) Scripts Oseltamivir Phosphate (TAMIFLU) 75 Mg Capsule 1 CAP PO BID for influenza, #10 CAP Prov: STARLA ROSARIO DO 04/17/19 STARLA ROSARIO DO Apr 17, 2019 13:33
[2019-04-17] MEDS ORDERED: OSEL75CA PO (13:59)
== END 2019-04-17 14:09 | disposition home or self-care (01) ==
LOC: ER 12:43
DX: J11.1 Influenza due to unidentified influenza virus with other respiratory manifestations (principal); Z90.710 Acquired absence of both cervix and uterus
CPT/HCPCS: 87804; 99283

== ENCOUNTER 2019-06-07 11:24 | Emergency (ER) | payer SELFPAY ==
[~2019-06-07] VITALS: Ht 162.6 cm; Wt 96.4 kg
[~2019-06-07 11:24] MED LIST changes: +OSEL75CA PO
[2019-06-07 12:24] LABS: BASO # 0.1 x10^3/uL (0.0-0.2); BASO % 1 % (0-3); EOS # 0.4 x10^3/uL (0.0-0.7); EOS % 4 % (0-3); HEMATOCRIT 38.9 % (36.0-47.0); HEMOGLOBIN 12.7 g/dL (12.0-15.5); LYMPH # 2.4 x10^3/uL (1.0-4.8); LYMPH % 27 % (24-48); MEAN CORPUSCULAR HEMOGLOBIN 25 pg (25-35); MEAN CORPUSCULAR HGB CONC 33 g/dL (31-37); MEAN CORPUSCULAR VOLUME 76 fL (79-100); MONO # 0.4 x10^3/uL (0.0-1.1); MONO % 4 % (0-9); NEUT # 5.7 x10^3uL (1.8-7.7); NEUT % 64 % (31-73); PLATELET COUNT 311 x10^3/uL (140-400); RED BLOOD COUNT 5.12 x10^6/uL (3.50-5.40); RED CELL DISTRIBUTION WIDTH 14.4 % (11.5-14.5)
--- NOTE | 2019-06-07 12:28 | PHYS DOC ---
Past History Past Medical History: No Pertinent History Past Surgical History: Hysterectomy, Oophorectomy, Tubal ligation, Other Alcohol Use: None Drug Use: None Adult General Chief Complaint Chief Complaint: ABDOMINAL PAIN [facility] HPI 33-year-old female presents with right lower quadrant abdominal pain. The pain is a crampy sensation worse with bouncing. She has been having pain for the last 4 days. It has been increasing in intensity. She did miss a couple days of work this week due to the pain. Today she just could not keep waiting. She went to an urgent care or her primary and they were concern for possible appendicitis thought she might need to come the emergency room. That is why the patient is here. She has had nausea but no vomiting. Her stools have been normal. Her urine has been normal. Denies fever chills. She has no other complaints at this time. Review of Systems Review of Systems Constitutional: Denies fever or chills [] Eyes: Denies change in visual acuity, redness, or eye pain [] HENT: Denies nasal congestion or sore throat [] Respiratory: Denies cough or shortness of breath [] Cardiovascular: No additional information not addressed in HPI [] GI: abdominal pain, nausea. Denies vomiting, bloody stools or diarrhea [] : Denies dysuria or hematuria [] Musculoskeletal: Denies back pain or joint pain [] Integument: Denies rash or skin lesions [] Neurologic: Denies headache, focal weakness or sensory changes [] Endocrine: Denies polyuria or polydipsia [] All other systems were reviewed and found to be within normal limits, except as documented in this note. Allergies Allergies Allergies Coded Allergies Type Severity Reaction Last Updated Verified No Known Drug Allergies 04/21/17 No Physical Exam Physical Exam Constitutional: Well developed, well nourished, no acute distress, non-toxic appearance. [] HENT: Normocephalic, atraumatic, bilateral external ears normal, oropharynx moist, no oral exudates, nose normal. [] Eyes: PERRLA, EOMI, conjunctiva normal, no discharge. [] Neck: Normal range of motion, no tenderness, supple, no stridor. [] Cardiovascular:Heart rate regular rhythm, no murmur [] Lungs & Thorax: Bilateral breath sounds clear to auscultation [] Abdomen: Bowel sounds normal, soft, right lower quadrant tenderness with guarding and rebound, no masses, no pulsatile masses. [] Skin: Warm, dry, no erythema, no rash. [] Back: No tenderness, no CVA tenderness. [] Extremities: No tenderness, no cyanosis, no clubbing, ROM intact, no edema. [] Neurologic: Alert and oriented X 3, normal motor function, normal sensory function, no focal deficits noted. [] Psychologic: Affect normal, judgement normal, mood normal. [] EKG EKG [] Radiology/Procedures Radiology/Procedures [] Impressions: Examination: CT ABD PELV W/ IV CONTRST ONLY History: Right lower quadrant pain Comparison/Correlation: 10/04/2015 CT abdomen and pelvis with contrast, 06/11/2009 CT abdomen and pelvis with contrast Findings: Axial images of the abdomen and pelvis were obtained following IV contrast. Sagittal and coronal reformatted images were provided. Visualized bases are clear. Liver, spleen, pancreas, right adrenal gland, and right kidneys are normal. Left renal punctate calculus associated pole no hydronephrosis. No urinary bladder is unremarkable. Gallbladder fossa is unremarkable. No inflammatory changes about the cecum. No bowel obstruction. Moderate quantity of stool in colon. Uterus is not identified. At the right pelvic region, there is a complex collection suggested measuring 5 cm x 4.2 cm on axial image 68 series 2. Impression: Complex collection within the right pelvic sidewall region. Complex cyst or mass is of concern and further evaluation with pelvic ultrasound exam is recommended. Nonobstructing punctate left renal superior pole calyceal calculus is. PQRS Compliance Statement: One or more of the following individualized dose reduction techniques were utilized for this examination: 1. Automated exposure control 2. Adjustment of the mA and/or kV according to patient size 3. Use of iterative reconstruction technique Electronically signed by: Davis Martinez MD (06/07/2019 2:35 PM) [id number] DICTATED AND SIGNED BY: DAVIS MARTINEZ MD DATE: 06/07/19 1435 CC: STARLA ROSARIO DO; PCP,NO ~ Examination: US PELVIS History: Right pelvic mass on CT performed earlier on the same date Comparison/Correlation: CT abdomen and pelvis with contrast performed earlier on the same day Findings: Transabdominal pelvic ultrasound was performed. Bladder is unremarkable. Hysterectomy noted. At the right adnexal region, there is a complex mass with flow within it and it measures 5.6 cm x 5.2 cm x 5.4 cm. No pelvic free fluid. Impression: Complex right pelvic mass. Neoplastic or infectious etiology may account for this finding. Electronically signed by: Davis Martinez MD (06/07/2019 3:36 PM) [id number] DICTATED AND SIGNED BY: DAVIS MARTINEZ MD DATE: 06/07/19 1536 CC: STARLA ROSARIO DO; PCP,NO ~ Course & Med Decision Making Course & Med Decision Making Pertinent Labs and Imaging studies reviewed. (See chart for details) The patient's labs are unremarkable except for a potassium of 2.7. We have given her oral and IV replacement. Her CT scan was suggestive of possible pelv ic mass. Pelvic ultrasound also shows complex mass which could be infectious or neoplastic. See official reads for more details. The patient's blood pressure has been quite high. I have given her 0.2 of clonidine. I spoke with Dr. Pulido" at [facility] and she does not believe the mass needs to be emergently followed up. This can be done as an outpatient. I have given her 10 mg of hydralazine and 20 mg of lisinopril for blood pressure. She is received 4 mg of morphine and another milligram of Dilaudid for her abdominal pain. She was also given 5 mg of metoprolol and a clonidine patch for blood pressure. We were finally able to get it to around 180/100. As shown advised patient follow-up with her primary physician. She has been hospitalized for hypertension before that spontaneously resolved without further medication. She is stable for discharge at this time. 47 minutes of critical care time was spent on this patient exclusive of other billable procedures. [] Dragon Disclaimer Dragon Disclaimer This electronic medical record was generated, in whole or in part, using a voice recognition dictation system. Departure Departure: Impression: Primary Impression: Hypertensive urgency Additional Impression: Pelvic mass Disposition: HOME, SELF-CARE Condition: STABLE Referrals: PCPJOSÉ MIGUEL (PCP) Patient Instructions: Hypertension, [id number], Pelvic Mass Problem Qualifiers STARLA ROSARIO DO Jun 07, 2019 12:28
[2019-06-07 12:33] LABS: BILIRUBIN,URINE NEG (NEG); COLOR,URINE YELLOW; GLUCOSE,URINE NEG (NEG)
[2019-06-07 12:34] LABS: ALBUMIN 3.5 g/dL (3.4-5.0); ALBUMIN/GLOBULIN RATIO 0.8 (1.0-1.7); CALCIUM 9.4 mg/dL (8.5-10.1); CREATININE 0.6 mg/dL (0.6-1.0); GFR 139.3; NITRITE,URINE NEG (NEG); TOTAL BILIRUBIN 0.3 mg/dL (0.2-1.0); UROBILINOGEN,URINE 0.2 mg/dL (0.2 mg/dL)
[2019-06-07 12:37] LABS: POTASSIUM 2.7 mmol/L (3.5-5.1)
[2019-06-07 12:40] LABS: BACTERIA,URINE FEW /HPF (0-FEW); CLARITY,URINE CLEAR; SQUAMOUS EPITHELIAL CELL,UR MOD /LPF; WBC,URINE 0 /HPF (0-4)
[2019-06-07] MEDS ORDERED: POTASSIUM CHLORIDE 20 MEQ TABLET.ER. PO ONE (13:00)
[2019-06-07] MEDS ORDERED: POTASSIUM CHLORIDE 10MEQ 100 ML IV SCH (13:00)
[2019-06-07] MEDS ORDERED: MORPHINE SULFATE 4 MG/ML DISP.SYRIN. IV ONE (13:15)
[2019-06-07] MEDS ORDERED: ONDANSETRON PF 4 MG/2 ML VIAL. IVP ONE (13:15)
[2019-06-07] MEDS ORDERED: cloNIDine HCL 0.1 MG TABLET ONE (13:55)
[2019-06-07] MEDS ORDERED: IOHEXOL 300 MG/ML 75 ML VIAL. IV ONE (14:15)
[2019-06-07] MEDS ORDERED: cloNIDine HCL 0.1 MG TABLET PO ONE (14:30)
--- NOTE | 2019-06-07 14:38 | RAD ---
Examination: CT ABD PELV W/ IV CONTRST ONLY History: Right lower quadrant pain Comparison/Correlation: 10/04/2015 CT abdomen and pelvis with contrast, 06/11/2009 CT abdomen and pelvis with contrast Findings: Axial images of the abdomen and pelvis were obtained following IV contrast. Sagittal and coronal reformatted images were provided. Visualized bases are clear. Liver, spleen, pancreas, right adrenal gland, and right kidneys are normal. Left renal punctate calculus associated pole no hydronephrosis. No urinary bladder is unremarkable. Gallbladder fossa is unremarkable. No inflammatory changes about the cecum. No bowel obstruction. Moderate quantity of stool in colon. Uterus is not identified. At the right pelvic region, there is a complex collection suggested measuring 5 cm x 4.2 cm on axial image 68 series 2. Impression: Complex collection within the right pelvic sidewall region. Complex cyst or mass is of concern and further evaluation with pelvic ultrasound exam is recommended. Nonobstructing punctate left renal superior pole calyceal calculus is. PQRS Compliance Statement: One or more of the following individualized dose reduction techniques were utilized for this examination: 1. Automated exposure control 2. Adjustment of the mA and/or kV according to patient size 3. Use of iterative reconstruction technique Electronically signed by: Romulo Bob MD (06/07/2019 2:35 PM) [id number]
[2019-06-07 15:12] LABS: U PREG PATIENT NEGATIVE (NEG)
--- NOTE | 2019-06-07 15:39 | RAD ---
Examination: US PELVIS History: Right pelvic mass on CT performed earlier on the same date Comparison/Correlation: CT abdomen and pelvis with contrast performed earlier on the same day Findings: Transabdominal pelvic ultrasound was performed. Bladder is unremarkable. Hysterectomy noted. At the right adnexal region, there is a complex mass with flow within it and it measures 5.6 cm x 5.2 cm x 5.4 cm. No pelvic free fluid. Impression: Complex right pelvic mass. Neoplastic or infectious etiology may account for this finding. Electronically signed by: Romulo Bob MD (06/07/2019 3:36 PM) [id number]
[2019-06-07] MEDS ORDERED: LISINOPRIL 10 MG TABLET PO ONE (17:00)
[2019-06-07] MEDS ORDERED: hydrALAZINE 20 MG/ML VIAL. IV ONE (17:00)
[2019-06-07] MEDS ORDERED: LISINOPRIL 5 MG TABLET. PO ONE (17:00)
[2019-06-07] MEDS ORDERED: HYDROmorphone PF 1 MG/ML DISP.SYRIN IV ONE (17:15)
[2019-06-07] MEDS ORDERED: METOPROLOL TARTRATE 5 MG/5 ML VIAL. IV ONE (18:15)
[2019-06-07] MEDS ORDERED: cloNIDine TTS-1 1 PATCH PATCH TD ONE (18:15)
[2019-06-07] MEDS ORDERED: cloNIDine TTS-2 1 PATCH PATCH TD ONE (18:15)
[2019-06-07 18:37] VITALS: BP 160/114
== END 2019-06-07 18:42 | disposition home or self-care (01) ==
LOC: ER 11:24
DX: I16.0 Hypertensive urgency (principal); I10 Essential (primary) hypertension; R19.00 Intra-abdominal and pelvic swelling, mass and lump, unspecified site; Z90.89 Acquired absence of other organs; Z98.51 Tubal ligation status; Z90.721 Acquired absence of ovaries, unilateral
CPT/HCPCS: 36415; 74177; 76856; 80053; 81001; 81025; 85025; 96374; 96375; 99285; J0360; J1170; J2270; J2405; J3480; J3490; Q9967

== ENCOUNTER 2019-06-21 14:25 | Emergency (ER) | payer MEDICAID ==
[~2019-06-21] VITALS: Ht 162.6 cm; Wt 96.4 kg
[2019-06-21 15:05] LABS: BASO # 0.1 x10^3/uL (0.0-0.2); BASO % 1 % (0-3); EOS # 0.4 x10^3/uL (0.0-0.7); EOS % 3 % (0-3); HEMATOCRIT 41.8 % (36.0-47.0); HEMOGLOBIN 13.5 g/dL (12.0-15.5); LYMPH # 2.7 x10^3/uL (1.0-4.8); LYMPH % 22 % (24-48); MEAN CORPUSCULAR HEMOGLOBIN 24 pg (25-35); MEAN CORPUSCULAR HGB CONC 32 g/dL (31-37); MEAN CORPUSCULAR VOLUME 76 fL (79-100); MONO # 0.5 x10^3/uL (0.0-1.1); MONO % 4 % (0-9); NEUT # 8.5 x10^3uL (1.8-7.7); NEUT % 69 % (31-73); PLATELET COUNT 335 x10^3/uL (140-400); RED BLOOD COUNT 5.54 x10^6/uL (3.50-5.40); RED CELL DISTRIBUTION WIDTH 15.1 % (11.5-14.5); WHITE BLOOD COUNT 12.2 x10^3/uL (4.0-11.0)
[2019-06-21 15:15] LABS: CALCIUM 9.5 mg/dL (8.5-10.1); CREATININE 0.6 mg/dL (0.6-1.0); GFR 139.3
[2019-06-21 15:18] LABS: POTASSIUM 2.7 mmol/L (3.5-5.1)
[2019-06-21 15:25] LABS: BACTERIA,URINE MOD /HPF (0-FEW); BILIRUBIN,URINE NEG (NEG); CLARITY,URINE CLOUDY; COLOR,URINE YELLOW; GLUCOSE,URINE NEG (NEG); NITRITE,URINE NEG (NEG); UROBILINOGEN,URINE 0.2 mg/dL (0.2 mg/dL)
[2019-06-21 15:27] LABS: SQUAMOUS EPITHELIAL CELL,UR MANY /LPF
--- NOTE | 2019-06-21 15:41 | RAD ---
Examination: US PELVIS W/TV History: Pelvic pain, mass Comparison/Correlation: CT of the abdomen and pelvis with IV contrast 06/07/2019, pelvic ultrasound exam 06/07/2019 Findings: Transabdominal and transvaginal pelvic ultrasound was performed. Transvaginal technique was utilized better assess the adnexal structures. Hysterectomy is noted. Within the right pelvic region, there is a complex mass which measures 5.5 cm x 4.3 cm by 4.1 cm. There is a solid hypoechoic component which measures up to 2.9 cm diameter. No flow is evident within it. Cystic component adjacent to it measures up to 3.2 cm diameter. Additional hypoechoic component measuring up to 3.8 cm x 2.6 cm x 1.7 cm present. There is no left ovary identified corresponding with reported medical history. Impression: Complex right pelvic mass. Neoplastic etiology may count for this finding. Cystic component is greater in size as compared to the previous exam. Overall volume of the mass is decreased in previous exam although this may relate to differences in measurement technique. This may be of ovarian origin. Correlation with medical history is required. Electronically signed by: Romulo Bob MD (06/21/2019 3:38 PM) [id number]
[2019-06-21] MEDS ORDERED: POTASSIUM CHLORIDE 20 MEQ TABLET.ER. PO ONE (15:45)
[2019-06-21] MEDS ORDERED: MORPHINE SULFATE 4 MG/ML DISP.SYRIN. IV ONE (16:15)
[2019-06-21 16:20] VITALS: BP 202/103
[2019-06-21] MEDS ORDERED: ONDA4TAB7 PO (16:22)
[2019-06-21] MEDS ORDERED: METO10TA81 PO (16:22)
[2019-06-21] MEDS ORDERED: LISI1TAB23 PO (16:22)
[2019-06-21] MEDS ORDERED: HYDR-2155 PO (16:22)
--- NOTE | 2019-06-21 16:23 | PHYS DOC ---
Past History Past Medical History: Hypertension Past Surgical History: Hysterectomy, Oophorectomy, Tubal ligation, Other Alcohol Use: None Drug Use: None Adult General Chief Complaint Chief Complaint: ABDOMINAL PAIN HPI HPI Patient is a 33 year old female who presents with severe lower abdominal pain. Patient was seen here 2 weeks ago for similar pain and was diagnosed with an abdominal mass at that time. She has a follow-up appointment with her primary care doctor on Tuesday for this. She is not been taking anything for it at home other than Tylenol. She states the pain is getting much worse than it was previously. She denies any fevers, vaginal discharge, vaginal bleeding. She is having severe nausea. She denies any constipation or dysuria. She does have increased urination. Patient does not have a history of blood pressure problems other than when she was . She has not been on blood pressure medicine for several years. She denies any chest pain, shortness of breath, headache, blurred vision, decreased urination, numbness, weakness. Review of Systems Review of Systems General: Denies fever, chills, sweats, fatigue Eyes: Denies drainage, blurred vision HENT: Denies rhinorrhea, sore throat Respiratory: Denies cough, shortness of breath, wheezing Cardiac: Denies edema, palpitations, chest pain GI: Denies V reports abdominal pain, nausea MSK: Denies back pain, neck pain Skin: Denies rash, jaundice Neuro: Denies headache, dizziness Psychiatric: Denies SI/HI All other systems were reviewed and found to be within normal limits, except as documented in this note. Current Medications Current Medications Current Medications Medications (Trade) Dose Ordered Sig/Iva Start Time Stop Time Status Last Admin Dose Admin Potassium Chloride (Klor-Con) 40 meq 1X ONCE 06/21/19 15:45 06/21/19 15:47 DC Allergies Allergies Allergies Coded Allergies Type Severity Reaction Last Updated Verified No Known Drug Allergies 04/21/17 No Physical Exam Physical Exam Constitutional: Well developed, well nourished, Cooperative, uncomfortable, non- toxic appearing HEENT: Normocephalic, atraumatic, oropharynx moist, EOMI, PERRL, no drainage from eyes, normal conjunctiva Neck: Supple, normal range of motion, no stridor Cardiovascular: RRR, 2+ radial pulses bilaterally, no edema Respiratory: CTA bilaterally, no respiratory distress, no wheezing/crackles Abdomen: Soft, tenderness in the pelvic area bilaterally Skin: Warm, dry, intact Extremities: No obvious deformities Neurologic: Alert and Oriented x3, motor and sensory function grossly normal, no focal deficits Psychologic: Normal affect, normal judgment, normal mood. No SI/HI Current Patient Data Vital Signs Vital Signs Date Time Temp Pulse Resp B/P (MAP) Pulse Ox O2 Delivery O2 Flow Rate FiO2 06/21/19 14:30 97.9 114 18 202/134 (156) 98 Room Air Lab Results Laboratory Tests Test 06/21/19 14:41 06/21/19 14:45 Urine Collection Type Unknown Urine Color Yellow Urine Clarity Cloudy Urine pH 6.5 Urine Specific [place] 1.015 Urine Protein 100 mg/dl (NEG-TRACE) Urine Glucose (UA) Neg mg/dL (NEG) Urine Ketones (Stick) Neg mg/dL (NEG) Urine Blood Neg (NEG) Urine Nitrite Neg (NEG) Urine Bilirubin Neg (NEG) Urine Urobilinogen Dipstick 0.2 mg/dL (0.2 mg/dL) Urine Leukocyte Esterase Neg (NEG) Urine RBC 1-2 /HPF (0-2) Urine WBC 1-4 /HPF (0-4) Urine Squamous Epithelial Cells Many /LPF Urine Bacteria Mod /HPF (0-FEW) White Blood Count 12.2 x10^3/uL (4.0-11.0) H Red Blood Count 5.54 x10^6/uL (3.50-5.40) H Hemoglobin 13.5 g/dL (12.0-15.5) Hematocrit 41.8 % (36.0-47.0) Mean Corpuscular Volume 76 fL (79-100) L Mean Corpuscular Hemoglobin 24 pg (25-35) L Mean Corpuscular Hemoglobin Concent 32 g/dL (31-37) Red Cell Distribution Width 15.1 % (11.5-14.5) H Platelet Count 335 x10^3/uL (140-400) Neutrophils (%) (Auto) 69 % (31-73) Lymphocytes (%) (Auto) 22 % (24-48) L Monocytes (%) (Auto) 4 % (0-9) Eosinophils (%) (Auto) 3 % (0-3) Basophils (%) (Auto) 1 % (0-3) Neutrophils # (Auto) 8.5 x10^3uL (1.8-7.7) H Lymphocytes # (Auto) 2.7 x10^3/uL (1.0-4.8) Monocytes # (Auto) 0.5 x10^3/uL (0.0-1.1) Eosinophils # (Auto) 0.4 x10^3/uL (0.0-0.7) Basophils # (Auto) 0.1 x10^3/uL (0.0-0.2) Sodium Level 140 mmol/L (136-145) Potassium Level 2.7 mmol/L (3.5-5.1) *L Chloride Level 100 mmol/L (98-107) Carbon Dioxide Level 27 mmol/L (21-32) Anion Gap 13 (6-14) Blood Urea Nitrogen 13 mg/dL (7-20) Creatinine 0.6 mg/dL (0.6-1.0) Estimated GFR (Cockcroft-Gault) 139.3 Glucose Level 129 mg/dL (70-99) H Calcium Level 9.5 mg/dL (8.5-10.1) EKG EKG [] Radiology/Procedures Radiology/Procedures Pelvic ultrasound shows mass without torsion [] Course & Med Decision Making Course & Med Decision Making Pertinent Labs and Imaging studies reviewed. (See chart for details) Patient is a 33-year-old female who presents to the emergency room complaining of severe abdominal pain. Patient is uncomfortable on exam. She was recently diagnosed with a pelvic mass but has not followed up at this time. Patient will need follow-up with [facility]. Ultrasound was repeated to rule out torsion and was negative. Patient was hypertensive while here in the emergency room, however she does not have any symptoms suggestive of endorgan damage. At this time she does not need treatment for her blood pressure here in the emergency room as recommended by ACE[facility]. She will be placed on outpatient blood pressure medication. She will also be given pain and nausea medicine until she is able to follow-up for her pelvic mass. Patient's test results and vitals while in the ED were fully reviewed and discussed with the patient. Patient is stable and at this time does not need admission to the hospital. We have discussed strict return precautions and the importance of following up with their Primary Care Physician. Patient stated understanding and was given an opportunity to ask any questions. Dragon Disclaimer Dragon Disclaimer This electronic medical record was generated, in whole or in part, using a voice recognition dictation system. Departure Departure: Impression: Primary Impression: Pelvic mass Additional Impressions: Hypertension Nausea Disposition: 01 HOME/RESIDENCE PRIOR TO ADM Condition: STABLE Referrals: BEAU GUAMAN MD (PCP) Additional Instructions: Follow up with OBGYN Obstetrics/Gyncology [address] [place] [address] Scripts Lisinopril/Hydrochlorothiazide (LISINOPRIL-HCTZ 10-12.5 MG TAB) 1 Each Tablet 1 TAB PO DAILY for HTN, #30 TAB 0 Refills Prov: VINAY HAILE MD 06/21/19 Metoclopramide Hcl (REGLAN) 10 Mg Tablet 1 TAB PO TID PRN for NAUSEA for 30 Days, #30 TAB 0 Refills before food and bedtime Prov: VINAY HAILE MD 06/21/19 Ondansetron Hcl (ZOFRAN) 4 Mg Tablet 1 TAB PO PRN Q6HRS PRN for NAUSEA, #10 TAB Prov: VINAY HAILE MD 06/21/19 Hydrocodone Bit/Acetaminophen (HYDROCODONE-APAP 5-325 ) 1 Each Tablet 1 TAB PO PRN Q6HRS PRN for PAIN, #15 % 0 Refills Prov: VINAY HAILE MD 06/21/19 Problem Qualifiers VINAY HAILE MD Jun 21, 2019 16:23
== END 2019-06-21 16:28 | disposition home or self-care (01) ==
LOC: ER 14:25
DX: R19.09 Other intra-abdominal and pelvic swelling, mass and lump (principal); I10 Essential (primary) hypertension; R11.0 Nausea; Z90.710 Acquired absence of both cervix and uterus; Z98.51 Tubal ligation status; Z90.722 Acquired absence of ovaries, bilateral
CPT/HCPCS: 36415; 76830; 76856; 80048; 81001; 85025; 96374; 99284; J2270; 99285-25

== ENCOUNTER 2020-08-08 04:44 | Inpatient (IN) | payer BC, MEDICAID ==
[~2020-08-08] VITALS: Ht 165.1 cm; Wt 90.7 kg
[~2020-08-08 04:44] MED LIST changes: +HYDR-2155 PO; +LISI1TAB23 PO; +METO10TA81 PO; +MULT-445 PO; -MULT1TAB52 PO; +ONDA4TAB7 PO
--- NOTE | 2020-08-08 05:17 | PHYS DOC ---
Past History Past Medical History: Anemia, Hypertension (YO GOLDSTEIN MD) Past Surgical History: Hysterectomy, Oophorectomy, Tubal ligation, Other (YO GOLDSTEIN MD) Alcohol Use: None Drug Use: None (YO GOLDSTEIN MD) General Adult EDM: Chief Complaint: HEADACHE HPI: HPI: "I was driving yesterday.. to work.. and I got this headache.. .. both sides of my head.. felt like I had a fever.. and I ve been home...My blood pressure was up tonight.. so I came in... I hurt all over my body.. aching.. bones hurt...d. the only other time I had high blood pressure was when I was ..." Patient is a 34 year old female who presents with above hx and complaiints of bitemporal head and fever. Pt. 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 Patient did recently travel to [place] 1 week ago when she stayed approximately 4 days. Patient did get Covid vaccination in March or April consisting of Pfizer two vaccinations. Patient no history of hypertension except during . Patient denies any trauma. Patient denies any IV drug use. Past medical history of anemia, hypertension-eclampsia during ,. Patient status post hysterectomy and oophorectomy.. Patient follows with Dr. Baker as primary (YO GOLDSTEIN MD) Review of Systems: Review of Systems: Constitutional: History of fever or chills Eyes: Denies change in visual acuity HENT: Denies nasal congestion or sore throat Respiratory: Denies cough or shortness of breath Cardiovascular: Denies chest pain or edema GI: Denies abdominal pain, nausea, vomiting, bloody stools or diarrhea : Denies dysuria Musculoskeletal: Complains of generalized muscle, bone, back pain and joint pain Integument: Denies rash Neurologic: History of headache, focal weakness or sensory changes Endocrine: Denies polyuria or polydipsia Lymphatic: Denies swollen glands Psychiatric: Denies depression or anxiety (YO GOLDSTEIN MD) Family History: Family History: Noncontributory to presentation (YO GOLDSTEIN MD) Current Medications: Current Meds: Current Medications Medications (Trade) Dose Ordered Sig/Iva Start Time Stop Time Status Last Admin Dose Admin Acetaminophen (Tylenol) 1,000 mg 1X ONCE 08/08/20 05:15 08/08/20 05:16 UNV Clonidine HCl (Catapres Tts-2) 1 patch 1X ONCE 08/08/20 05:30 08/08/20 05:31 Clonidine HCl (Catapres) 0.2 mg 1X ONCE 08/08/20 05:30 08/08/20 05:31 Lactated Ringer's 1,000 ml @ 100 mls/hr Q10H 08/08/20 05:30 08/08/20 15:29 (YO GOLDSTEIN MD) Allergies: Allergies: Allergies Coded Allergies Type Severity Reaction Last Updated Verified No Known Drug Allergies 04/21/17 No (YO GOLDSTEIN MD) Physical Exam: PE: Constitutional: Moderate acute distress, non-toxic appearance. [] HENT: Normocephalic, atraumatic, bilateral external ears normal, oropharynx moist, slight injection pharynx, no oral exudates, nose mild injection of turbinates and clear rhinorrhea Eyes: PERRLA, EOMI, conjunctiva normal, no discharge. [] Neck: Normal range of motion, no tenderness, supple, no stridor. [] Cardiovascular: Tachycardia heart rate, regular rhythm, no murmur [. PMI to the left Lungs & Thorax: Bilateral breath sounds equal apex on auscultation [] Abdomen: Bowel sounds normal, soft, no tenderness, no masses, no pulsatile masses. Obese. Old surgery scars. Skin: Warm, dry, no erythema, no rash. [] Skin lesion right lower leg Back: No tenderness, no CVA tenderness. [] Extremities: No tenderness, no cyanosis, no clubbing, ROM intact, no edema. No cording appreciated. Neurologic: Alert and oriented X 3, moves all extremities on request, does have distal sensory,, no focal deficits noted. [] DTRs +2 patella and brachial. [employer] equal. No drift. Ambulatory without problems. Psychologic: Affect anxious, judgement normal, mood normal. [] (YO GOLDSTEIN MD) EKG: EKG: My interpretation EKG shows a sinus rhythm at 98 bpm. Bimodal P waves left leads, LVH, with fascicular block. No findings acute STEMI of contralateral changes. Abnormal EKG [] (YO GOLDSTEIN MD) Radiology/Procedures: Radiology/Procedures: [[address] [address] IMAGING REPORT Signed PATIENT: TORSTEN DIAZ ACCOUNT: [id number] : 1985 LOCATION: ER AGE: 34 SEX: F EXAM STATUS: REG ER ORD. PHYSICIAN: YO GOLDSTEIN MD REASON: HTN, Dyspnea PROCEDURE: PORTABLE CHEST 1V EXAM: AP View of the chest DATE: 08/08/2020 5:05 AM INDICATION: Reason: HTN, Dyspnea / Spl. Instructions: / History: COMPARISON: 04/22/2017 FINDINGS: The heart is not enlarged. Mediastinal and hilar contours are normal. No focal parenchymal airspace opacity. No pleural effusion or pneumothorax. IMPRESSION: 1. No radiographic evidence for acute cardiopulmonary process. Electronically signed by: Santo Ramsey MD (08/08/2020 5:39 AM) [facility] DICTATED AND SIGNED BY: SANTO RAMSEY MD DATE: 08/08/20 0537 CC: YO GOLDSTEIN MD; BEAU BAKER MD ~[facility]0 0 ][address] [address] IMAGING REPORT Signed PATIENT: TORSTEN DIAZ ACCOUNT: [id number] : 1985 LOCATION: ER AGE: 34 SEX: F EXAM STATUS: REG ER ORD. PHYSICIAN: YO GOLDSTEIN MD REASON: evans, PROCEDURE: CT HEAD WO CONTRAST EXAM: CT Head without IV contrast CLINICAL HISTORY: Headache COMPARISON: None. TECHNIQUE: Routine CT of the head without contrast. PQRS compliance statement - One or more of the following individualized dose reduction techniques were utilized for this study: 1. Automated exposure control 2. Adjustment of the mA and/or kV according to patient size 3. Use of iterative reconstruction technique FINDINGS: There is no evidence of hemorrhage, mass or extra-axial fluid collection. Rae-white differentiation is maintained with no evidence of edema. There is no mass effect or shift of the intracranial structures. The ventricles, basilar cisterns and cortical sulci are normal in size and configuration for the patients stated age. The cerebellum and brainstem are unremarkable. The calvarium demonstrates no evidence of fracture or focal lesion. There is normal aeration of the visualized paranasal sinuses and mastoid air cells. The visualized portions of the orbits are normal. IMPRESSION: No evidence for acute intracranial process. Electronically signed by: Santo Ramsey MD (08/08/2020 5:37 AM) [facility] DI[facility]ATED AND SIGNED BY: SANTO RAMSEY MD DATE: 08/08/20 0535 CC: YO GOLDSTEIN MD; BEAU BAKER MD ~[facility]0 0 (YO GOLDSTEIN MD) Heart Score: C/O Chest Pain: No HEART Score for Chest Pain: HEART Score for Chest Pain Response (Comments) Value History Moderately Suspicious 1 ECG Nonspecific Repolarizatio 1 Age < 45 0 Risk Factors No Risk Factors 0 Total 2 Risk Factors: Risk Factors: DM, Current or recent (<one month) smoker, HTN, HLP, family history of CAD, obesity. Risk Scores: Score 0 - 3: 2.5% MACE over next 6 weeks - Discharge Home Score 4 - 6: 20.3% MACE over next 6 weeks - Admit for Clinical Observation Score 7 - 10: 72.7% MACE over next 6 weeks - Early Invasive Strategies (YO GOLDSTEIN MD) Course & Med Decision Making: Course & Med Decision Making Pertinent Labs and Imaging studies reviewed. (See chart for details) Patient endorsed to at shift change. He will make disposition. Impression: 1. Fever 2. Accelerated HTN 3. Completed Pfizer Covid vaccination in March and April [] (YO GOLDSTEIN MD) Course & Med Decision Making The patient has an elevated white count of 17 with a left shift. I do not have a source for infection at this time. Patient's potassium is low at 2.4. We will replace this by IV. Her blood pressure continues to be high so I have ordered hydralazine. I spoke with Dr. Ribera hospitalist and he has accepted the patient for admission. The patient is in agreement with this plan. I have ordered blood cultures and will broadly cover her with Zosyn after they are drawn. (ROSARIO,STARLA Cronin Disclaimer: Mehrdad Disclaimer: This electronic medical record was generated, in whole or in part, using a voice recognition dictation system. (YO GOLDSTEIN MD) Departure Departure: Impression: Primary Impression: Fever Additional Impressions: Body aches Hypertension Hypokalemia Disposition: ADMITTED INPATIENT Admitting Physician: Danielle Ribera (STARLA ROSARIO DO) Condition: GUARDED Referrals: BEAU BAKER MD (PCP) Scripts Oxycodone HCl (Roxicodone) 5 Mg Tablet 5 MG PO Q6H for pain for 6 Days, #24 TAB Prov: DANIELLE RIBERA MD 08/10/20 Amoxicillin (AMOXICILLIN) 500 Mg Capsule 1 CAP PO TID for glossitis for 7 Days, #21 CAP Prov: DANIELLE RIBERA MD 08/10/20 Spironolactone (SPIRONOLACTONE) 50 Mg Tablet 1 TAB PO BID for hypokalemia, #30 TAB 5 Refills Prov: DANIELLE RIBERA MD 08/10/20 Clonidine (CLONIDINE TTS-3) 1 Each Patch.tdwk 1 PATCH TD WEEKLY for htn for 30 Days, #30 PATCH Prov: DANIELLE RIBERA MD 08/10/20 Lisinopril (LISINOPRIL) 20 Mg Tablet 1 TAB PO DAILY for htn for 30 Days, #30 TAB 5 Refills Prov: DANIELLE RIBERA MD 08/10/20 Labetalol Hcl (LABETALOL HCL) 200 Mg Tablet 1 TAB PO BID for htn for 30 Days, #60 TAB 5 Refills Prov: DANIELLE RIBERA MD 08/10/20 Attending Co-Sign Attending Co-Sign The patient was seen and interviewed as well as examined at the bedside. The chart was reviewed. The case was discussed. Agree with the plan of care. (YO GOLDSTEIN MD) YO GOLDSTEIN MD Aug 08, 2020 05:17 STARLA ROSARIO DO Aug 08, 2020 07:00
[2020-08-08] MEDS ORDERED: cloNIDine HCL 0.1 MG TABLET PO ONE (05:30)
[2020-08-08] MEDS ORDERED: ACETAMINOPHEN 500 MG TABLET PO ONE (05:30)
[2020-08-08] MEDS ORDERED: IV RINGERS SOLUTION,LACTATED 1,000 ML IV SCH (05:30)
[2020-08-08] MEDS ORDERED: cloNIDine TTS-2 1 PATCH PATCH TD ONE (05:30)
--- NOTE | 2020-08-08 05:36 | EKG ---
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
--- NOTE | 2020-08-08 05:40 | RAD ---
EXAM: CT Head without IV contrast CLINICAL HISTORY: Headache COMPARISON: None. TECHNIQUE: Routine CT of the head without contrast. PQRS compliance statement - One or more of the following individualized dose reduction techniques wer e utilized for this study: 1. Automated exposure control 2. Adjustment of the mA and/or kV according to patient size 3. Use of iterative reconstruction technique FINDINGS: There is no evidence of hemorrhage, mass or extra-axial fluid collection. Rae-white differentiation is maintained with no evidence of edema. There is no mass effect or shift of the intracranial structures. The ventricles, basilar cisterns and cortical sulci are normal in size and configuration for the jim ents stated age. The cerebellum and brainstem are unremarkable. The calvarium demonstrates no evidence of fracture or focal lesion. There is normal aeration of the visualized paranasal sinuses and mastoid air cells. The visualized portions of the orbits are normal. IMPRESSION: No evidence for acute intracranial process. Electronically signed by: Santo Montaño MD (08/08/2020 5:37 AM) [facility]
--- NOTE | 2020-08-08 05:42 | RAD ---
EXAM: AP View of the chest DATE: 08/08/2020 5:05 AM INDICATION: Reason: HTN, Dyspnea / Spl. Instructions: / History: COMPARISON: 04/22/2017 FINDINGS: The heart is not enlarged. Mediastinal and hilar contours are normal. No focal parenchymal airspace opacity. No pleural effusion or pneumothorax. IMPRESSION: 1. No radiographic evidence for acute cardiopulmonary process. Electronically signed by: Santo Montaño MD (08/08/2020 5:39 AM) [facility]
[2020-08-08 06:28] LABS: BASO # 0.1 x10^3/uL (0.0-0.2); BASO % 0 % (0-3); EOS % 0 % (0-3); HEMATOCRIT 39.8 % (36.0-47.0); HEMOGLOBIN 12.9 g/dL (12.0-15.5); LYMPH # 1.6 x10^3/uL (1.0-4.8); LYMPH % 9 % (24-48); MEAN CORPUSCULAR HEMOGLOBIN 25 pg (25-35); MEAN CORPUSCULAR HGB CONC 33 g/dL (31-37); MEAN CORPUSCULAR VOLUME 76 fL (79-100); MONO # 0.7 x10^3/uL (0.0-1.1); MONO % 4 % (0-9); NEUT # 14.7 x10^3uL (1.8-7.7); NEUT % 86 % (31-73); PLATELET COUNT 301 x10^3/uL (140-400); RED BLOOD COUNT 5.23 x10^6/uL (3.50-5.40); RED CELL DISTRIBUTION WIDTH 14.8 % (11.5-14.5); WHITE BLOOD COUNT 17.1 x10^3/uL (4.0-11.0)
[2020-08-08 06:34] LABS: BARBITURATES NEG (NEG); BENZODIAZEPINES NEG (NEG); CANNABINOIDS NEG (NEG); COCAINE NEG (NEG); METHADONE NEG (NEG); OPIATES NEG (NEG); PHENCYCLIDINE NEG (NEG)
[2020-08-08 06:38] LABS: AMPHETAMINE/METHAMPHETAMINE NEG (NEG); CALCIUM 9.6 mg/dL (8.5-10.1); CREATININE 0.6 mg/dL (0.6-1.0); GFR 138.5; TOTAL BILIRUBIN 0.6 mg/dL (0.2-1.0); TOTAL PROTEIN 8.5 g/dL (6.4-8.2)
[2020-08-08 06:39] LABS: DIRECT BILIRUBIN 0.1 mg/dL (0.0-0.2)
[2020-08-08 06:43] LABS: POTASSIUM 2.4 mmol/L (3.5-5.1)
[2020-08-08 06:46] LABS: BILIRUBIN,URINE NEG (NEG); CLARITY,URINE HAZY; COLOR,URINE YELLOW; GLUCOSE,URINE NEG (NEG); NITRITE,URINE NEG (NEG); UROBILINOGEN,URINE 0.2 mg/dL (0.2 mg/dL)
[2020-08-08 06:48] LABS: RBC,URINE OCC /HPF (0-2)
[2020-08-08 06:49] LABS: AMORPHOUS SEDIMENT,UR PRESENT /HPF; BACTERIA,URINE 0 /HPF (0-FEW); SQUAMOUS EPITHELIAL CELL,UR MOD /LPF
[2020-08-08 06:52] LABS: INFLUENZA A PATIENT NEGATIVE (NEGATIVE); INFLUENZA B PATIENT NEGATIVE (NEGATIVE)
[2020-08-08] MEDS ORDERED: ONDANSETRON PF 4 MG/2 ML VIAL. IVP PRN (07:00)
[2020-08-08] MEDS ORDERED: POTASSIUM CHLORIDE 20MEQ 100 ML IV SCH (07:00)
[2020-08-08] MEDS ORDERED: hydrALAZINE 20 MG/ML VIAL. IV ONE (07:00)
[2020-08-08] MEDS ORDERED: PIPERACILLIN/TAZOBACTAM 3.375 GM in IV NORMAL SALINE 50ML 50 ML IV ONE (07:30)
[2020-08-08] MEDS ORDERED: IV NORMAL SALINE 50ML 50 ML ONE (08:35)
[2020-08-08] MEDS ORDERED: PIPERACILLIN/TAZOBACTAM 3.375 GM VIAL IV ONE (08:36)
[2020-08-08] MEDS: POTASSIUM CHLORIDE 10MEQ 100 ML IV SCH ×4 (09:00→10:21)
--- NOTE | 2020-08-08 10:42 | NUR ---
pt admitted to room 120 via gurney from ed. pt c/o pain on left side. states it is pulsating intermittent pain, she doesn't normally have pain and the tylenol in ed did not help. paged dr patino. order for oxycodone received. order to recheck potassium after this second bag and call him back for po orders.
[2020-08-08] MEDS: oxyCODONE IR 5 MG TABLET PO PRN ×3 (11:08→20:41)
[2020-08-08 11:18] VITALS: BP 151/95
[2020-08-08 13:19] LABS: % BANDS 2 % (0-9); % BASOS 1 % (0-3); % LYMPHS 8 % (24-48); % MONOS 4 % (0-10); % SEGS 85 % (35-66)
[2020-08-08 13:20] LABS: PLT ESTIMATE ADEQUATE (ADEQUATE)
[2020-08-08 13:22] LABS: HYPOCHROMIA SLIGHT
[2020-08-08] MEDS: SPIRONOLACTONE 25 MG TABLET PO SCH ×2 (14:16→20:37)
[2020-08-08] MEDS: POTASSIUM BICARB 10 MEQ EFFERVESCENT TABLET. PO SCH ×3 (14:16→16:35)
--- NOTE | 2020-08-08 14:43 | HP ---
ADMIT DATE: 08/08/2020 HISTORY OF PRESENT ILLNESS: The patient is a 34-year-old female patient, who came to the emergency room complaining of headache. The patient stated that she has complained of being dizzy, nauseous, lightheaded and has a headache and vomited twice yesterday. She went to work and then went home and basically slept and when she woke up early this morning, she had felt that she has left-sided weakness with pain both on her left upper and left lower extremity. She also found out that she has bitten her tongue and therefore, she came to the emergency room for further evaluation and treatment. On questioning her further, she denies any incontinence of bowel or bladder. She has never had any history of seizures before. She was investigated in the emergency room and was found to be extremely hypokalemic with a potassium of 2.4 and bicarbonate of 31, was admitted. She was also found to have marked leukocytosis; however, extensive investigation showed no evidence of any infection as her urinalysis was unremarkable and her chest x-ray was also unrevealing and was admitted for further evaluation and treatment. PAST MEDICAL HISTORY: Significant for preeclampsia when she was and she has been hypertensive after and was on antihypertensive medication. She said that she was on metoprolol, hydralazine that stopped about a year and a half ago. She is known to have iron deficiency anemia, apparently was attributed to her what seemed to be dysfunctional uterine bleeding and also has a history of hypokalemia, although she has never been investigated for low potassium. She was seen in the emergency room of this hospital in 06/07/2019 with hypertensive emergency. At that time, her potassium was also 2.7, although the patient was adamant that she has never had any diarrhea. She is not using any diuretics. PAST SURGICAL HISTORY: Significant for left side oophorectomy for ectopic , total abdominal hysterectomy in 2016 and right oophorectomy after that. ALLERGIES: She has no known drug allergies. MEDICATIONS: She is currently on following medication. She stated that she is on multivitamin and Extra Strength Tylenol. FAMILY HISTORY: She has two sisters and one brother and 1 sister older and 1 sister and 1 brother younger, all healthy. Her father is still alive at age of 54 and has diabetes, on insulin. Her mother is alive at age of 55 and has hypertension. SOCIAL HISTORY: She is . She has 2 sons and 2 daughters. She never smoked. Drinks alcohol occasionally. Does not use any drugs. 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 REVIEW OF SYSTEMS: The patient denied any blurring of vision, cataracts, glaucoma or macular degeneration. Denied any earache, tinnitus or sensory deafness. Denied any nosebleed, stuffy nose or postnasal drip. Denied any sore throat, sore tongue, toothache, hoarseness of voice or difficulty swallowing. Did complain of nausea and vomiting. Denied any diarrhea, constipation. Denied any hematemesis, melena or hematochezia. Denied any dysuria, frequency or hematuria. Denied any chest pain, shortness of breath, orthopnea, paroxysmal nocturnal dyspnea. Denied any cough, phlegm or hemoptysis. Did complain of being dizzy, lightheaded. Complained of headache and also things spinning around and also complained of left-sided weakness with pain mostly in the left side, involving both left upper and left lower extremity. PHYSICAL EXAMINATION: GENERAL: On arrival to the emergency room, there was no pallor, jaundice, cyanosis, or thyromegaly. No jugular venous distention. No lower limb edema. VITAL SIGNS: Heart rate on arrival was 112, blood pressure was 200/126, temperature was 100.5, respiratory rate was 18 and oxygen saturation was 96%. HEENT: Examination of the head, eyes, ears, nose, and throat showed she is normocephalic, atraumatic. NECK: Supple. HEART: Normal first and second heart sounds. No gallop, murmur. CHEST: Shows central trachea, equal bilateral chest expansion, air entry, vesicular breath sounds. No crepitation or rhonchi. ABDOMEN: Soft, nontender. No guarding or rigidity. No organomegaly. All hernial orifice intact. Bowel sounds normal. NEUROLOGIC: She is awake, alert, oriented x3. She moves all extremities spontaneously without any focal deficit. 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 She had no drift and she ambulates without any assistance or assistive devices. Psychologically, the affect, judgment and mood are all normal. Has had an EKG, which showed that she was in sinus rhythm at 98 beats per minute with bimodal P waves and left ventricular hypertrophy with fascicular block. No finding of acute STEMI of contralateral changes. Her chest x-ray showed that the heart is not enlarged. Mediastinum and hilar contours are normal. She has no focal parenchymal airspace opacity. No pleural effusion or pneumothorax. The impression is that there is no radiographic evidence of acute cardiopulmonary process. The CT scan of the head showed there is no evidence of hemorrhage, mass, or extraaxial fluid collection. Salmon-white differentiation is maintained with no evidence of edema. There is no mass effect or shift of the intracranial structure. The ventricles, basilar cisterns and critical sulci and cortical sulci are normal in size and configuration for the patient's stated age. The cerebellum and brainstem are unremarkable. The calvarium demonstrates no evidence of fracture or focal lesion. There is normal aeration of the visualized paranasal sinuses and mastoid air cells. The visualized portions of the orbits are normal. LABORATORY DATA: She has had lab work done in the emergency room, which showed a white cell count high at 17,100; hemoglobin 13; hematocrit 39; MCV 76 and platelet count 301,000 with a manual differential showed 86% polymorphs, 9% lymphocytes, 4% monocytes. Her serum sodium was 143, potassium 2.4, chloride 101, bicarbonate 31, anion gap of 11, BUN 11, creatinine 0.6. Estimated GFR was 138 mL per minute. Her glucose was 123, calcium was 9.6, magnesium 2. Total bilirubin, AST, ALT, alkaline phosphatase were normal. CK was 117. Her beta natriuretic peptide was 186, total protein was 8.5, albumin was 4. Her D-dimer was slightly elevated at 0.98. Urinalysis showed the urine was yellow, hazy with a pH of 8, specific gravity 1.020. There is small amount of protein. The urine was negative for glucose, ketones, blood, nitrite, bilirubin and leukocyte esterase, 0 RBCs, 1-4 WBCs and no bacteria. Her toxic screen was essentially negative and her influenza A and B and streptococcal rapid antigen was negative. ASSESSMENT AND PLAN: In summary, this is a 34-year-old female patient with hypertensive urgency, fever, hypertension, left-sided weakness and pain and she has bitten her tongue, raising the possibility that she might have seizure disorder. She was seen in the emergency room about a year ago exactly on 06/2019. At that time, she was seen for hypertensive urgency and has had severe hypokalemia with a potassium at that time 2.7. My plan is given that she adamantly denying having any intractable nausea or vomiting or diarrhea and/or using any diuretics, raised the possibility the patient might have some form of __ hyperaldosteronism. We will replenish her potassium and start her on spironolactone and decide on further management accordingly. IRON DR: Jose Angel TID: [id number]
[2020-08-08 15:00] VITALS: BP 158/112
[2020-08-08] MEDS: POTASSIUM CHLORIDE IV SCH (15:22)
[2020-08-08] MEDS: LABETALOL HCL 100 MG TABLET PO SCH ×2 (15:22→20:37)
[2020-08-08] MEDS: NACL IV SCH (15:22)
[2020-08-08] MEDS: DEXTROSE IV SCH (15:22)
[2020-08-08] MEDS ORDERED: cloNIDine TTS-3 1 PATCH PATCH TD SCH (15:30)
[2020-08-08 18:03] LABS: CALCIUM 8.9 mg/dL (8.5-10.1); CREATININE 0.8 mg/dL (0.6-1.0); GFR 99.4; POTASSIUM 3.2 mmol/L (3.5-5.1)
[2020-08-08 19:12] VITALS: BP 169/113
[2020-08-08] MEDS ORDERED: SPIRONOLACTONE 25 MG TABLET PO SCH (21:00)
[2020-08-08 23:00] VITALS: BP 163/107
[2020-08-09] MEDS: DEXTROSE IV SCH ×3 (00:44→22:20)
[2020-08-09] MEDS: NACL IV SCH ×3 (00:44→22:20)
[2020-08-09] MEDS: POTASSIUM CHLORIDE IV SCH ×3 (00:44→22:20)
[2020-08-09 06:13] VITALS: BP 181/122
[2020-08-09] MEDS: LABETALOL HCL 200 MG TABLET PO SCH ×2 (06:41→20:15)
[2020-08-09] MEDS: SPIRONOLACTONE 25 MG TABLET PO SCH ×2 (08:30→20:16)
[2020-08-09 11:02] LABS: CALCIUM 9.1 mg/dL (8.5-10.1); CREATININE 0.7 mg/dL (0.6-1.0); GFR 115.9; POTASSIUM 3.1 mmol/L (3.5-5.1)
[2020-08-09 11:23] VITALS: BP 174/112
[2020-08-09] MEDS ORDERED: LISINOPRIL 10 MG TABLET PO SCH (13:30)
[2020-08-09] MEDS: POTASSIUM CHLORIDE 20 MEQ TABLET.ER. PO SCH ×3 (14:34→17:23)
--- NOTE | 2020-08-09 14:59 | RAD ---
INDICATION: Reason: poorly contolled hypertension and severe hypokalemia / Spl. Instructions: / His tory: COMPARISON: None. FINDINGS: Spectral Doppler, color grayscale ultrasound images are obtained of the bilateral renal artery arteri al system. On the right the renal artery velocities range from 82 to 150 cm/S with renal artery to aortic ratio of 1.3 On the left the renal artery to aortic ratios are 0.8 with renal artery peak systolic velocity of 83- 91 cm/S. Abdominal aorta peak systolic velocity 118 cm/S. No hydronephrosis. Right kidney is 118 mm and left kidney is 117 mm IMPRESSION: * No ultrasound evidence of hemodynamically significant stenosis of the renal arteries. Electronically signed by: Deejay Cole MD (08/09/2020 2:56 PM) [id number]
[2020-08-09 15:22] VITALS: BP 177/115
--- NOTE | 2020-08-09 17:15 | PN ---
SUBJECTIVE: The patient denies any headaches, visual disturbances, pain, numbness, and paresthesia of the left upper extremity. Overall, she feels better; however, her blood pressure is still elevated. She denies any recurrent seizure-like activities. OBJECTIVE: GENERAL: Obese female, not in acute distress. VITAL SIGNS: Blood pressure 181/122, respiratory rate 18, pulse is 82 and regular, oxygen saturation 98% on room air. HEENT: Normocephalic, atraumatic, otherwise unremarkable. NECK: Supple. Negative for carotid bruit, lymphadenopathy, or thyromegaly. LUNGS: Clear to A and P. CARDIOVASCULAR: Regular rate and rhythm, normal S1, S2. There is no S3, S4, or murmur. ABDOMEN: Soft. Bowel sounds positive. EXTREMITIES: Negative for cyanosis, clubbing, or pitting edema. NEUROLOGIC: Normal mental status and intact cranial nerves. There are no focal motor or sensory deficits. Deep tendon reflexes are symmetric and active without pathologic responses. Gait and coordination are normal. LABORATORY DATA: Pending. ASSESSMENT: 1. Questionable seizure-like activities during the night prior to this admission resulted in left-sided weakness and paresthesia and pain with leukocytosis and tongue biting. 2. Multiple medical problems include severe hypertension, iron deficiency anemia, and hypokalemia. RECOMMENDATION: 1. We will arrange for electroencephalogram coming Tuesday at our office. 2. Continue with current management initiated by Dr. Ribera and workup for hypertension and hypokalemia. The patient is neurologically stable. DEE DEE/JANIA DR: Dolores TID: [id number]
[2020-08-09 18:18] VITALS: BP 172/117
[2020-08-09] MEDS: oxyCODONE IR 5 MG TABLET PO PRN (20:15)
[2020-08-09 20:17] VITALS: BP 188/135
[2020-08-09] MEDS ORDERED: LISINOPRIL 10 MG TABLET PO ONE (22:30)
--- NOTE | 2020-08-09 23:18 | CONS ---
DATE OF CONSULTATION: 08/08/2020 NEUROLOGY CONSULTATION REFERRING PHYSICIAN: Dr. Ribera. REASON FOR CONSULTATION: Rule out seizure. HISTORY OF PRESENT ILLNESS: This is a 34-year-old right-handed female who was admitted through Emergency Room today after she presented with a chief complaint of dizziness, nausea, lightheadedness and global headaches. The patient stated she has had history of migraine headaches; however, this headache was not migraine and she denies photophobia or phonophobia. The patient woke up this morning and she felt that she had left-sided weakness associated with pain of the left upper and lower extremities. Apparently, she bit her tongue and she was having head jerking, lasted about 30 minutes. The patient recalled the events and she denies any confusion, disorientation, or urinary incontinence. The patient denies any recent head injury or any history of seizure. In the Emergency Room, she was found to have hypokalemia at 2.4 with a marked leukocytosis of 17,000. The patient denies chest pain, shortness of breath or palpitation, dysarthria, dysphagia. The patient denies any similar episodes in the past. PAST MEDICAL HISTORY: Significant for preeclampsia, hypertension, iron deficiency anemia, uterine bleeding and history of hypokalemia. She denies any bowel or bladder dysfunction. PAST SURGICAL HISTORY: Significant for left oophorectomy due to ectopic , total abdominal hysterectomy in 2016 followed by a right oophorectomy. FAMILY HISTORY: Father is alive at age of 54 and has diabetes mellitus. Mother is alive at 55 and has hypertension. She has one brother and one sister and both are healthy. SOCIAL HISTORY: The patient is . She has two sons and two daughters. She denies smoking, but she drinks alcohol occasionally. She works at [employer]. CURRENT HOME MEDICATIONS: Multivitamins and extra-strength Tylenol along with Excedrin, which did not help the headache at this time. REVIEW OF SYSTEMS: A 12-point review of system was performed as mentioned above, history of present illness, otherwise unremarkable. PHYSICAL EXAMINATION: GENERAL: Well-developed, well-nourished female, not in acute distress. VITAL SIGNS: She weighs 90 kilos. Blood pressure 151/95, respiratory rate 18, pulse is 69 and regular, oxygen saturation is 95%, and temperature is 98.9. HEENT: Normocephalic, atraumatic, otherwise unremarkable. NECK: Supple, negative for carotid bruit, lymphadenopathy or thyromegaly. LUNGS: Clear to A and P. CARDIOVASCULAR: Regular rhythm. Normal S1, S2. There is no S3, S4 or murmur. ABDOMEN: Soft. Bowel sounds positive. EXTREMITIES: Negative for cyanosis, clubbing or pedal edema. NEUROLOGIC: Mental status: The patient is alert and oriented x 3. Speech is fluent. There is no language dysfunction. Memory, judgment and abstracting thinking is normal. The patient denies hallucination or delusion. Cranial nerves: Visual conti are full. The pupils are reactive to light and accommodation. Extraocular movements are intact. There is no nystagmus. There is no facial motor or sensory deficits. Hearing is intact bilaterally. The palate is elevated symmetrically. Sternocleidomastoid muscles are powerful bilaterally. The patient shrugs her shoulders symmetrically, protrudes her tongue in the midline without fasciculation or atrophy. Motor examination: No focal muscle bulk wasting. The tone is normal. The strength is 5/5 throughout. Sensory examination revealed normal pinprick, light touch, vibratory and position senses. Deep tendon reflexes were symmetric and hypoactive with absent Achilles responses. Gait and stance is steady. DIAGNOSTIC STUDY: Nonenhanced head CT scan revealed no evidence of acute intracranial process and chest x-ray revealed no evidence of acute cardiopulmonary process. LABORATORY DATA: CBC revealed white blood cells of 17,100; hemoglobin 12.9; hematocrit 39.8; platelet count 301,000. Chemistry revealed a sodium of 144, potassium 3.2, chloride 104, CO2 31, BUN 9, creatinine 0.8, glucose is 174 and calcium 8.9. Troponin level is normal. Urinalysis is negative. Coagulation: D-dimer is high at 0.98. Urine drug screen is negative. IMPRESSION: 1. Nausea, vomiting with leukocytosis, tongue biting; rule out a seizure during sleep. 2. Multiple medical problems include hypertension, left-sided weakness; resolved. 3. History of hypokalemia. RECOMMENDATION: 1. We will arrange for electroencephalogram as outpatient. The patient should not drive until the seizure was completely ruled out. 2. Continue with current management initiated by Dr. Ribera. The patient should have workup for hypokalemia and rule out adrenal gland deficiency or Montague's disease. DEE DEE/VIRGINIA/SOT DR: Dolores TID: [id number]
[2020-08-09 23:59] VITALS: BP 160/109
--- NOTE | 2020-08-10 01:24 | PN ---
DATE: 08/09/2020 SUBJECTIVE: The patient is resting, slightly propped up in bed, in no apparent respiratory distress. On questioning her, she has had no more headache, no tingling, no weakness or pain in her left upper and left lower extremity; however, she continued to be hypokalemic and hypertensive despite a huge amount of potassium supplement and treatment with spironolactone. PHYSICAL EXAMINATION: GENERAL: When I examined her this afternoon, she looked well and was clearly in no apparent respiratory distress. There was no pallor, jaundice, cyanosis, or thyromegaly. No jugular venous distention. No lower limb edema. VITAL SIGNS: Heart rate was 84, blood pressure is 174/112, temperature was 98.8, respiratory rate was 18 and oxygen saturation was 97% on room air. HEAD, EYES, EARS, NOSE AND THROAT: Normocephalic, atraumatic. NECK: Supple. HEART: Showed normal first and second heart sounds, no gallop, murmur. CHEST: Clear to auscultation, no crepitation or rhonchi. ABDOMEN: Distended, soft, nontender. NEUROLOGIC: She is grossly intact. Her intake over the last 24 hours was 1000, no output was recorded. LABORATORY DATA: This morning showed a serum sodium 142, potassium 3.1, chloride 104, bicarbonate 31, anion gap of 7, BUN 7, creatinine 0.7. Estimated GFR was 115 mL per minute. Her glucose 126, calcium was 9.1. Her white cell count was 17,000, hemoglobin 12, hematocrit 39, MCV 76 and platelet count 301,000. ASSESSMENT: 1. Hypertensive urgency. 2. Severe headache with left-sided weakness and pain involving both upper and lower extremities as well as she has also bitten her tongue, raising the possibility that she might have a seizure. 3. She has severe hypokalemia, transpire that she was here about a year ago with exactly the same presentation at that time with a potassium of 2.7. As the patient denied any nausea, vomiting or diarrhea, she is not on any diuretics raising the possibility of either severe renal artery stenosis or primary hyperaldosteronism. PLAN: My plan, I have increased her labetalol to 200 mg twice a day. She is on clonidine patch TTS 3 and she is on spironolactone 50 mg twice a day. I will add lisinopril. I will arrange for her to have bilateral venous ___ to rule out the possibility of renal artery stenosis and she will probably need to be referred to an receiver setter to investigate this further. JOSETTE DR: Jose Angel TID: [id number]
[2020-08-10] MEDS ORDERED: LISINOPRIL 20 MG TABLET ONE (06:03)
[2020-08-10] MEDS: LABETALOL HCL 200 MG TABLET PO SCH (06:06)
[2020-08-10 06:08] VITALS: BP 162/110
--- NOTE | 2020-08-10 06:28 | NUR ---
Notified about elevated blood pressure twice this shift. Orders given for the first phone call and wanted this nurse to give pt her am BP meds.
[2020-08-10 06:50] LABS: ALBUMIN 3.1 g/dL (3.4-5.0); ALBUMIN/GLOBULIN RATIO 0.8 (1.0-1.7); CREATININE 0.6 mg/dL (0.6-1.0); GFR 138.5; POTASSIUM 3.9 mmol/L (3.5-5.1); TOTAL BILIRUBIN 0.5 mg/dL (0.2-1.0); TOTAL PROTEIN 6.8 g/dL (6.4-8.2)
[2020-08-10 06:51] LABS: HEMATOCRIT 32.8 % (36.0-47.0); HEMOGLOBIN 10.6 g/dL (12.0-15.5); RED BLOOD COUNT 4.26 x10^6/uL (3.50-5.40); RED CELL DISTRIBUTION WIDTH 15.2 % (11.5-14.5); WHITE BLOOD COUNT 7.8 x10^3/uL (4.0-11.0)
[2020-08-10 08:13] VITALS: BP 155/110
[2020-08-10] MEDS: SPIRONOLACTONE 25 MG TABLET PO SCH (08:18)
[2020-08-10] MEDS: DEXTROSE IV SCH (08:59)
[2020-08-10] MEDS: POTASSIUM CHLORIDE IV SCH (08:59)
[2020-08-10] MEDS: NACL IV SCH (08:59)
[2020-08-10] MEDS ORDERED: LISINOPRIL 20 MG TABLET PO SCH (09:00)
[2020-08-10 11:05] VITALS: BP 148/83
[2020-08-10] MEDS ORDERED: LABE200T4 PO (11:54)
[2020-08-10] MEDS ORDERED: AMOX500C PO (11:54)
[2020-08-10] MEDS ORDERED: SPIR50TA4 PO (11:54)
[2020-08-10] MEDS ORDERED: OXYC5TAB88 PO (11:54)
[2020-08-10] MEDS ORDERED: LISI20TA18 PO (11:54)
[2020-08-10] MEDS ORDERED: CLON1PAT3 TD (11:54)
--- NOTE | 2020-08-10 12:25 | NUR ---
Patient discharged to home. Given written discharge instructions and voiced understanding. All patient belongings sent home with patient. Patient ambulated off unit with INFORMATION SYSTEMS ANALYST, no concerns noted.
--- NOTE | 2020-08-10 14:10 | DS ---
DATE OF DISCHARGE: 08/10/2020 HOSPITAL COURSE: The patient is a 34-year-old -Domin[place] female patient who was admitted on 08/08/2020 with hypertensive urgency, fever, left-sided weakness and pain. She has also bitten her tongue, raising the possibility that she might have seizure disorder. She was seen in the emergency room about a year ago exactly on 06/2019. At that time, she also was diagnosed with hypertensive urgency and had also severe hypokalemia. We did start her on a potassium supplement. The patient has denied any nausea or vomiting, denied any diarrhea, denied use of any diuretics. I did add spironolactone 50 mg twice a day and started her on labetalol, clonidine patch and added also the lisinopril. Eventually, her blood pressure was well controlled. She was seen in consultation by Dr. Martin and plan was for her to be followed at his office for EEG. She was advised that she should not drive until her seizures are completely ruled out. I did actually an ultrasound of the renal arteries, which showed no evidence of renal artery stenosis; however, the patient probably has some form of hyperaldosteronism and needs to be seen by the pen maker. When I saw her today, the patient looked well and was clearly in no apparent respiratory distress. Has had no further episode of tongue biting, although her tongue continued to be swollen with some blisters on the outer aspect of the left side. PHYSICAL EXAMINATION: VITAL SIGNS: Her heart rate was 105, blood pressure was 148/83, temperature was 98.1, respiratory rate 20, and oxygen saturation was 96% on room air. HEAD, EYES, EARS, NOSE AND THROAT: Normocephalic, atraumatic. NECK: Supple. HEART: Normal first and second heart sounds, no gallop or murmur. CHEST: Clear to auscultation, no crepitation or rhonchi. ABDOMEN: Distended, soft, nontender. NEUROLOGIC: She was grossly intact. LABORATORY DATA: Her lab work this morning showed a serum sodium 142, potassium 3.9, chloride 107, bicarbonate 26, anion gap of 9, BUN 5, creatinine was 0.62, estimated GFR was 138 mL per minute, her glucose 120, calcium was 9. Total bilirubin, AST, ALT, alkaline phosphatase were normal. Total protein 6.8, albumin 3.1. Her white cell count was 7800, hemoglobin 10, hematocrit 33, MCV 77 and platelet count of 232,000. Her D-dimer was slightly elevated at 0.98. Urinalysis was essentially unremarkable. Toxic screen was negative. Her influenza A and B were negative and group A streptococcus rapid test was negative. CT scan of the head was also unremarkable, showed no evidence of acute intracranial process. Renal artery duplex showed no ultrasound evidence of hemodynamically significant stenosis of the renal arteries. DISCHARGE MEDICATIONS: The patient was discharged home to continue on amoxicillin 500 mg 3 times a day for 7 days for her infection of her tongue; clonidine TTS patch, 1 patch topically, to be replaced every 7 days; labetalol 200 mg twice a day, lisinopril 20 mg once a day, oxycodone immediate release 5 mg every 6 hours and spironolactone 50 mg twice a day. The patient may return to work on 08/14. She was advised to repeat her lab work on 08/13. For the lab to call the results or fax to my office. She was encouraged to make an appointment with an pen maker to investigate the possibility of hyperaldosteronism or Conn syndrome as a cause of her hypertension and severe hypokalemia. MIKEL DR: Jose Angel TID: [id number]
== END 2020-08-10 12:25 | disposition home or self-care (01) | DRG 305 ==
LOC: ER 04:44 → 1 SOUTH 07:00
PROVIDERS: ADMIT Internal Medicine; ATTEND Internal Medicine
DX: I16.0 Hypertensive urgency (principal); I10 Essential (primary) hypertension; E87.6 Hypokalemia; D72.829 Elevated white blood cell count, unspecified; D50.9 Iron deficiency anemia, unspecified; E26.9 Hyperaldosteronism, unspecified; Z90.710 Acquired absence of both cervix and uterus; Z90.721 Acquired absence of ovaries, unilateral; Z83.3 Family history of diabetes mellitus; Z82.49 Family history of ischemic heart disease and other diseases of the circulatory system; Z79.899 Other long term (current) drug therapy
CPT/HCPCS: 36415; 70450; 71045; 76770; 80048; 80053; 80076; 80307; 81001; 82550; 83690; 83735; 83880; 84132; 84443; 84484; 85007; 85025; 85027; 85379; 87040; 87070; 87804; 87880; 93005; 96361; 96374; J0360; J2543; J3480; J7120; 99285-25

== ENCOUNTER 2020-12-24 09:44 | Observation (INO) | payer BC, MEDICAID ==
[~2020-12-24] VITALS: Ht 165.1 cm; Wt 90.9 kg
[~2020-12-24 09:44] MED LIST changes: +AMOX500C PO; +CLON1PAT3 TD; +LABE200T4 PO; -LISI1TAB23 PO; +LISI1TAB35 PO; +LISI20TA18 PO; +OXYC5TAB88 PO; +SPIR50TA4 PO
--- NOTE | 2020-12-24 10:08 | PHYS DOC ---
Past History Past Medical History: Anemia, Hypertension Additional Past Medical Histor: hyperaldosteronism Past Surgical History: Hysterectomy, Oophorectomy, Tubal ligation, Other Additional Past Surgical Histo: L adrenal gland removed Alcohol Use: None Drug Use: None Adult General Chief Complaint Chief Complaint: CHEST PAIN [facility] HPI Patient is a is a 35-year-old female presents this morning complaining of chest pain. Pain started when she was sitting down watching TV. This type of pain has never happened to her before. Pain is on the left side of the chest and radiates to the back and it is constant. Pain is worse with deep breath but is not worse with movement. Pain is sharp in character and 9 out of 10 in severity. Admits to history of hypertension for which she is on numerous meds, did not take them this morning. Also admits recent surgery 5 weeks ago at [facility] where she had an adrenal nodule on her left side removed. She is not on any blood thinners. She is fully vaccinated against COVID-19 with no URI or other concerning symptoms. Review of Systems Review of Systems Fourteen body systems of review of systems have been reviewed. See HPI for pertinent positives and negative responses, other lua all other systems are negative, non-pertinent or non-contributory Allergies Allergies Allergies Coded Allergies Type Severity Reaction Last Updated Verified No Known Drug Allergies 04/21/17 No Physical Exam Physical Exam Constitutional: Well developed, well nourished, no acute distress, non-toxic appearance. HENT: Normocephalic, atraumatic, bilateral external ears normal, oropharynx moist, no oral exudates, nose normal. Eyes: PERRLA, EOMI, conjunctiva normal, no discharge. Neck: Normal range of motion, no tenderness, supple, no stridor. Cardiovascular: Heart rate regular, sinus rhythm, no murmurs rubs or gallops Lungs & Thorax: Bilateral breath sounds clear to auscultation Abdomen: Bowel sounds normal, soft, no tenderness, no masses, no pulsatile masses. Nonsurgical abdomen, no peritoneal signs Skin: Warm, dry, no erythema, no rash. Back: No tenderness, no CVA tenderness. Extremities: No tenderness, no cyanosis, no clubbing, ROM intact, no edema. Neurologic: Alert and oriented X 3, grossly normal motor & sensory function, no focal deficits noted. Psychologic: Anxious affect and mood Current Patient Data Vital Signs Vital Signs Date Time Temp Pulse Resp B/P (MAP) Pulse Ox O2 Delivery O2 Flow Rate FiO2 12/24/20 09:46 98.1 93 20 188/138 (155) 99 Room Air Lab Results Laboratory Tests Test 12/24/20 10:06 12/24/20 11:42 White Blood Count 7.1 x10^3/uL Red Blood Count 5.11 x10^6/uL Hemoglobin 12.6 g/dL Hematocrit 39.6 % Mean Corpuscular Volume 78 fL Mean Corpuscular Hemoglobin 25 pg Mean Corpuscular Hemoglobin Concent 32 g/dL Red Cell Distribution Width 15.0 % Platelet Count 262 x10^3/uL Neutrophils (%) (Auto) 53 % Lymphocytes (%) (Auto) 29 % Monocytes (%) (Auto) 7 % Eosinophils (%) (Auto) 10 % Basophils (%) (Auto) 1 % Neutrophils # (Auto) 3.7 x10^3uL Lymphocytes # (Auto) 2.1 x10^3/uL Monocytes # (Auto) 0.5 x10^3/uL Eosinophils # (Auto) 0.7 x10^3/uL Basophils # (Auto) 0.1 x10^3/uL Sodium Level 138 mmol/L Potassium Level 4.0 mmol/L Chloride Level 102 mmol/L Carbon Dioxide Level 24 mmol/L Anion Gap 12 Blood Urea Nitrogen 13 mg/dL Creatinine 0.5 mg/dL Estimated GFR (Cockcroft-Gault) 169.9 Glucose Level 115 mg/dL Calcium Level 9.6 mg/dL Troponin I Quantitative < 0.017 ng/mL AT-Pfk-F-Type Natriuretic Peptide 83 pg/mL D-Dimer (Brea) 0.43 mg/L Current Medications Medications (Trade) Dose Ordered Sig/Iva Route PRN Reason Start Time Stop Time Status Last Admin Dose Admin Aspirin (Merna Aspirin) 325 mg 1X ONCE PO 12/24/20 10:30 12/24/20 10:34 DC 12/24/20 10:37 Nitroglycerin (Nitrostat) 0.4 mg PRN Q5MIN PRN SL CHEST PAIN 12/24/20 10:30 12/24/20 12:54 Hydralazine HCl (Apresoline) 10 mg 1X ONCE IV 12/24/20 14:00 12/24/20 14:01 UNV EKG EKG EKG ordered and interpreted by myself at 1000 hours as sinus rhythm at 91 bpm, unremarkable intervals, left axis deviation, nonspecific T wave abnormality in lead aVL, no STEMI Radiology/Procedures Radiology/Procedures EXAM: CHEST 1 VIEW History: Chest pain COMPARISON: None available. TECHNIQUE: Single portable radiograph of the chest FINDINGS: The cardiac silhouette is unremarkable. The lungs are clear bilaterally. The costophrenic sulci are clear and well demarcated. IMPRESSION: No radiographic evidence of an acute cardiopulmonary process. Electronically signed by: Jaguar Campos MD (12/24/2020 10:18 AM) [id number] Heart Score C/O Chest Pain: No HEART Score for Chest Pain: HEART Score for Chest Pain Response (Comments) Value History Slighlty/Non-Suspicious 0 ECG Nonspecific Repolarizatio 1 Age < 45 0 Risk Factors 1 or 2 Risk Factors 1 Troponin < Normal Limit 0 Total 2 Risk Factors: Risk Factors: DM, Current or recent (<one month) smoker, HTN, HLP, family history of CAD, obesity. Risk Scores: Risk Factors: DM, Current or recent (<one month) smoker, HTN, HLP, family history of CAD, obesity. Course & Med Decision Making Course & Med Decision Making Airway patent, breathing unlabored, IV access and vitals obtained concerning for hypertension HPI, physical exam and comprehensive ER work-up nonconcerning for any emergent or surgical issues. With that said, patient does appear to have hypertensive urgency due to lack of endorgan damage Patient did not take home labetalol, Procardia or hydrochlorothiazide, these were administered in ER in addition to IV hydralazine. Patient still having chest pressure with elevated blood pressure I contacted hospitalist at [facility] and discussed need for hospitalization for further inpatient medical management, patient accepted under care of Dr. Esqueda I have updated patient on proposed plan of care, entirety of ER work-up, and my recommendation for hospitalization and she agreed. All questions and concerns addressed prior to hospital admission Mehrdad Disclaimer Dragon Disclaimer This electronic medical record was generated, in whole or in part, using a voice recognition dictation system. PERC Rule for PE PERC Rule for PE Response (Comments) Value Age > 50: No 0 HR > 100: No 0 Sa02 on room air <95%: No 0 Unilateral leg swelling: No 0 Hemoptysis: No 0 Recent surgery or trauma: Yes 1 Prior PE or DVT: No 0 Hormone use: No 0 Total 1 Departure Departure: Impression: Primary Impression: Hypertensive urgency Disposition: ADMITTED INPATIENT Admitting Physician: Yuval Esqueda Condition: STABLE Referrals: SUNNY ORTIZ MD (PCP) JONES LEMONS DO Dec 24, 2020 10:08
--- NOTE | 2020-12-24 10:18 | EKG ---
[address] [address] Test Date: 2020-12-24 Test Time: 09:50:38 Pat Name: TORSTEN DIAZ Department: Room: Gender: F Precinct Captain: LESTER : 1985 Requested By: JONES LEMONS Order Number: [id number] Reading MD: Tushar Brown MD Measurements Intervals Aurora Rate: 91 P: 50 MA: 148 QRS: -56 QRSD: 80 T: 68 QT: 372 QTc: 465 Interpretive Statements SINUS RHYTHM LAD POOR R WAVE PROGRESSION Electronically Signed On 12-24-2020 17:28:31 CDT by Tushar Brown MD
--- NOTE | 2020-12-24 10:21 | RAD ---
EXAM: CHEST 1 VIEW History: Chest pain COMPARISON: None available. TECHNIQUE: Single portable radiograph of the chest FINDINGS: The cardiac silhouette is unremarkable. The lungs are clear bilaterally. The costophrenic sulci are clear and well demarcated. IMPRESSION: No radiographic evidence of an acute cardiopulmonary process. Electronically signed by: Jaguar Campos MD (12/24/2020 10:18 AM) [id number]
[2020-12-24] MEDS ORDERED: ASPIRIN 325 MG TABLET PO ONE (10:30)
[2020-12-24] MEDS: NITROGLYCERIN SUBLINGUAL 0.4 MG BOTTLE OF 25. SL PRN ×2 (10:38→12:54)
[2020-12-24 10:52] LABS: CALCIUM 9.6 mg/dL (8.5-10.1); CREATININE 0.5 mg/dL (0.6-1.0); GFR 169.9
[2020-12-24 10:56] LABS: BASO # 0.1 x10^3/uL (0.0-0.2); BASO % 1 % (0-3); EOS # 0.7 x10^3/uL (0.0-0.7); EOS % 10 % (0-3); HEMATOCRIT 39.6 % (36.0-47.0); HEMOGLOBIN 12.6 g/dL (12.0-15.5); LYMPH # 2.1 x10^3/uL (1.0-4.8); LYMPH % 29 % (24-48); MEAN CORPUSCULAR HEMOGLOBIN 25 pg (25-35); MEAN CORPUSCULAR HGB CONC 32 g/dL (31-37); MEAN CORPUSCULAR VOLUME 78 fL (79-100); MONO # 0.5 x10^3/uL (0.0-1.1); MONO % 7 % (0-9); NEUT # 3.7 x10^3uL (1.8-7.7); NEUT % 53 % (31-73); PLATELET COUNT 262 x10^3/uL (140-400); RED BLOOD COUNT 5.11 x10^6/uL (3.50-5.40); WHITE BLOOD COUNT 7.1 x10^3/uL (4.0-11.0)
[2020-12-24] MEDS ORDERED: hydrALAZINE 20 MG/ML VIAL. IV ONE ×2 (14:00→16:00)
[2020-12-24] MEDS ORDERED: MORPHINE SULFATE 4 MG/ML DISP.SYRIN. IV ONE ×2 (14:30→16:00)
[2020-12-24] MEDS ORDERED: hydroCHLOROthiazide 25 MG TABLET. PO ONE (14:30)
[2020-12-24] MEDS ORDERED: LABETALOL HCL 100 MG TABLET PO ONE (14:45)
[2020-12-24 15:19] LABS: BARBITURATES NEG (NEG); BENZODIAZEPINES NEG (NEG); CANNABINOIDS NEG (NEG); COCAINE NEG (NEG); METHADONE NEG (NEG); OPIATES NEG (NEG); PHENCYCLIDINE NEG (NEG)
[2020-12-24 15:23] LABS: AMPHETAMINE/METHAMPHETAMINE NEG (NEG)
[2020-12-24] MEDS ORDERED: NITROGLYCERIN SUBLINGUAL 0.4 MG BOTTLE OF 25. SL PRN (16:45)
[2020-12-24] MEDS ORDERED: ACETAMINOPHEN 325 MG TABLET PO PRN (16:45)
[2020-12-24] MEDS ORDERED: LABETALOL 20 MG/4 ML DISP.SYRIN. IVP PRN (17:00)
[2020-12-24 18:00] VITALS: BP 150/95
--- NOTE | 2020-12-24 18:33 | NUR ---
nursing note PT arrived to the unit from the ED by ania sargent, placed in room, admission question asked and documented. assisted with fluids. PT nausea. no other needs, bed low call light within reach.
[2020-12-24 19:00] VITALS: BP 138/96
[2020-12-24] MEDS ORDERED: oxyCODONE IR 5 MG TABLET PO PRN (20:15)
[2020-12-24] MEDS: SPIRONOLACTONE 25 MG TABLET PO SCH ×2 (20:29→21:00)
[2020-12-24] MEDS: LABETALOL HCL 200 MG TABLET PO SCH (20:30)
[2020-12-24] MEDS ORDERED: ONDANSETRON ODT 4 MG TAB.RAPDIS PO PRN (20:45)
--- NOTE | 2020-12-24 21:51 | NUR ---
Refused aldactone, states "my doctor at took me off of it".
[2020-12-24 23:00] VITALS: BP 167/118
[2020-12-25 00:05] VITALS: BP 139/87
[2020-12-25 05:00] VITALS: BP 128/89
[2020-12-25] MEDS ORDERED: MULTIVITAMIN with MINERAL TABLET. PO SCH (09:00)
[2020-12-25] MEDS ORDERED: LISINOPRIL 20 MG TABLET PO SCH (09:00)
[2020-12-25] MEDS: LABETALOL HCL 200 MG TABLET PO SCH (09:19)
[2020-12-25 09:21] VITALS: BP 128/89
--- NOTE | 2020-12-25 10:00 | DS ---
DATE OF DISCHARGE: 12/25/2020 ATTENDING PHYSICIAN: Dr. Esqueda. FINAL DISCHARGE DIAGNOSES: 1. Atypical chest pain, coronary ischemia ruled out. 2. Labile hypertension. 3. Hypertensive urgency. 4. History of hyperaldosteronism. 5. 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 6. Coronary ischemia, ruled out. HISTORY AND PHYSICAL: The patient is a pleasant 35-year-old female with a recent diagnosis of hyperaldosteronism. She follows up at [facility]. She had a recent resection of a left adrenal gland. She had hypertensive urgency. She was admitted for further treatment and evaluation. She had not taken her blood pressure meds in the morning. PHYSICAL EXAMINATION: Please see the dictated note. PERTINENT LABORATORY AND X-RAY STUDIES: She had a normal CBC with a hemoglobin of 12.6 g/dL with a white count of 7100. Electrolytes were all within normal range. Cardiac enzyme, troponin level was negative. BNP 83. Chest x-ray as noted. COURSE IN THE HOSPITAL: The patient was admitted. She was restarted on her home meds. Blood pressure came down nicely, by the next day, it was down to 128/83. I examined her, lungs were clear, her pain have subsided. She is ready for discharge. Reassurance of the workup was fairly unremarkable. Her Coronavirus swab was negative. At this time, she is discharged home with follow up with her PCP and her muffler installer. Her home meds include her labetalol 200 mg b.i.d., lisinopril 20 mg daily, multivitamin, oxycodone p.r.n. pain, and Aldactone 50 mg b.i.d. Her prognosis is good. She was discharged then from our hospital in stable condition with explicit instruction and followup care. VIRGINIE/BENITEZ DR: Aiden TID: [id number]
--- NOTE | 2020-12-25 10:11 | HP ---
DATE OF SERVICE: 12/25/2020 ADMIT DATE: 12/24/2020 ATTENDING PHYSICIAN: Dr. Esqueda CHIEF COMPLAINT: Chest wall pain. HISTORY OF PRESENT ILLNESS: The patient is a 35-year-old female, very straightforward. She has a longstanding history of hypertension. Just 2 months ago, she had a left adrenal adenoma removed. 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 This is also known as Conn syndrome. She sees an aircraft assembler and PCP at [facility]. No recent trauma. Her pain is sharp in nature. It is in the chest wall. She was admitted for further evaluation. She is fully vaccinated COVID-19. She did take her blood pressure meds in the morning. BP was elevated due to pain. She was admitted for hypertensive urgency and to rule out coronary ischemia. PAST MEDICAL HISTORY: Significant for tubal ligation, oophorectomy hyperaldosteronism and removal of the hormone active left adrenal adenoma. CURRENT MEDICATIONS: Include labetalol, hydrochlorothiazide and Procardia. ALLERGIES: She has no known drug allergies. SOCIAL HISTORY: She is a nonsmoker, nondrinker. REVIEW OF SYSTEMS: Significant for the recent surgery. She has been on temporary relief. She works at [employer] on the transplant. FAMILY HISTORY: Noncontributory. All other systems reviewed and turned to be negative. PHYSICAL EXAMINATION: GENERAL: When I saw her, this is a pleasant young female. VITAL SIGNS: Initial vital signs showed a blood pressure of 200 systolic, came down to 160, 150 and by the time I saw her, it was 128/89, pulse is 92 and regular. She was afebrile, oxygen saturation 98% on room air. HEENT: Head is without trauma. Pupils are reactive. Sclerae nonicteric. Oropharynx clear. NECK: Supple, no bruits. LUNGS: Clear. CARDIOVASCULAR: Regular heart tones. ABDOMEN: Soft. EXTREMITIES: Without edema. NEUROLOGIC: Focally intact. SKIN: Warm and dry. LABORATORY DATA: Normal CBC, chemistry panel, nonfasting blood sugar was 115 mg percent, creatinine 0.5 mg percent. Cardiac enzymes initially negative for coronary ischemia. ASSESSMENT: 1. A 35-year-old female with hypertensive urgency. 2. Labile hypertension. 3. Atypical chest pain, musculoskeletal in nature. 4. Recent history of adrenal adenoma resection. PLAN: 1. Observation status. 2. Restart home meds. 3. Followup cardiac enzymes. 4. Blood pressure monitoring. KASHIF/BENITEZ DR: SCOTTY/lurdes TID: [id number]
[2020-12-31] MEDS ORDERED: cloNIDine TTS-3 1 PATCH PATCH TD SCH (09:00)
== END 2020-12-25 10:00 | disposition home or self-care (01) ==
LOC: ER 09:44 → INTOOBSV 16:43 → 1 SOUTH 16:43
PROVIDERS: ADMIT Hospitalist; ATTEND Hospitalist
DX: I16.0 Hypertensive urgency (principal); Z20.822 Contact with and (suspected) exposure to COVID-19; I10 Essential (primary) hypertension; R07.89 Other chest pain; D35.02 Benign neoplasm of left adrenal gland; E26.01 Conn's syndrome; D64.9 Anemia, unspecified; E26.9 Hyperaldosteronism, unspecified; I25.9 Chronic ischemic heart disease, unspecified; Z79.899 Other long term (current) drug therapy; Z90.710 Acquired absence of both cervix and uterus; Z98.51 Tubal ligation status
CPT/HCPCS: 36415; 71045; 80048; 80307; 83880; 84484; 85025; 85379; 87426; 93005; 96374; 96375; 96376; 99285; G0378; J0360; J2270; J3490; Q0162; U0003; G0379